=== PATIENT | male | born 1965 | race Caucasian/White ===

== ENCOUNTER → 2019-11-19 | Outpatient (CLI) | payer SELFPAY ==
[~2019-11-19] MED LIST: CATHETER FLUSH 10 ML SYR IV PRN; CHOL100048 PO; CYAN100T3 PO; HOLD METFORMIN - RECEIVED CONTRAST 20 ML VIAL IV SCH; IOHEXOL 350 MG/ML 100 ML (OMNIPAQUE 350) VIAL IV ONE; NS 100 ML (IVPB) BAG IV ONE; POLY17PO6 PO; VITA80006 PO
--- NOTE | 2019-11-19 15:01 | Diagnostic Imaging Report ---
PROCEDURE: CT abdomen and pelvis with contrast. TECHNIQUE: Multiple contiguous axial images were obtained through the abdomen and pelvis after administration of intravenous contrast. Auto Exposure Controls were utilized during the CT exam to meet ALARA standards for radiation dose reduction. INDICATION: Elevated liver enzymes and abdominal distention. COMPARISON: No prior studies are available for comparison. FINDINGS: Imaging through the lung bases demonstrates small bilateral pleural effusions, slightly larger on the right. There is questionable mild nodular contour to the liver which can be seen with cirrhosis. No discrete liver mass is detected. Gallbladder is unremarkable. There is no biliary ductal dilatation. Pancreas is unremarkable. Spleen is normal in size. No adrenal mass is identified. Left kidney does contain a small cortical low density, too small to characterize but most likely a small cyst. Aorta is non-aneurysmal. There is some perihepatic and perisplenic ascites. Small amount of free fluid in the lower midline abdomen is seen as well with moderate free fluid in the pelvis. The bladder and prostate are unremarkable. There does appear to be fat-containing inguinal hernias bilaterally. There is some generalized edema throughout the subcutaneous tissues suggestive of anasarca. IMPRESSION: 1. Bilateral pleural effusions. 2. Moderate abdominal and pelvic ascites. There is some questionable nodular contour to the liver which can be seen with cirrhosis. No discrete liver mass is identified. There is no evidence of splenomegaly. 3. Anasarca. 4. Bilateral fat-containing inguinal hernias. Dictated by: Dictated on workstation # [id number]
== END ==
LOC: RAD FS 14:02
PROVIDERS: ATTEND Family Medicine
DX: J90 Pleural effusion, not elsewhere classified (principal); K40.20 Bilateral inguinal hernia, without obstruction or gangrene, not specified as recurrent; R18.8 Other ascites; R74.8 Abnormal levels of other serum enzymes; R14.0 Abdominal distension (gaseous)
CPT/HCPCS: 74177

== ENCOUNTER 2019-11-22 13:46 | Inpatient (IN) | payer SELFPAY ==
[~2019-11-22] VITALS: Ht 155 cm; Wt 97.3 kg
[2019-11-22] VITALS (14 sets, daily range): BP systolic 70–122; BP diastolic 45–82
[2019-11-22 14:12] LABS: BASOPHILS % (AUTO) 0 % (0-10); EOSINOPHILS # (AUTO) 0.1 10^3/uL (0.0-0.3); EOSINOPHILS % (AUTO) 1 % (0-10); HEMATOCRIT 47 % (40-54); HEMOGLOBIN 15.4 G/DL (13.3-17.7); LYMPHOCYTES # (AUTO) 1.2 X 10^3 (1.0-4.0); LYMPHOCYTES % (AUTO) 17 % (12-44); MEAN CORPUSCULAR HEMOGLOBIN 30 PG (25-34); MEAN CORPUSCULAR HGB CONC 33 G/DL (32-36); MEAN CORPUSCULAR VOLUME 92 FL (80-99); MEAN PLATELET VOLUME 11.5 FL (7.4-10.4); MONOCYTES # (AUTO) 0.6 X 10^3 (0.0-1.0); MONOCYTES % (AUTO) 8 % (0-12); NEUTROPHILS # (AUTO) 5.3 X 10^3 (1.8-7.8); NEUTROPHILS % (AUTO) 74 % (42-75); PLATELET COUNT 139 10^3/uL (130-400); RED CELL DISTRIBUTION WIDTH 14.4 % (10.0-14.5); WHITE BLOOD COUNT 7.1 10^3/uL (4.3-11.0)
[2019-11-22] MEDS: dilTIAZem DRIP PRE-MIX 125 ML IV SCH (14:13)
--- NOTE | 2019-11-22 14:14 | ED Cardiac General ---
History of Present Illness General Chief Complaint: Respiratory Problems Stated Complaint: ENLARGED HEART Nursing Triage Note: complaint of sob with ambulation, had echo today showed elevated heart rate and abn. heart rhythm Source: patient, other (gf) Exam Limitations: no limitations History of Present Illness Date Seen by Provider: Nov 22, 2019 Time Seen by Provider: 13:46 Initial Comments Patient presents to ER by private conveyance with his significant other and chief complaint for the past 2-3 weeks he's had progressively worsening exertional dyspnea, orthopnea without cough fever chills body aches malaise dysuria nausea vomiting or chest pain. He has never followed with a doctor before but did establish care with Dr. Birmingham who sent him to Dr. Corado. Dr. Corado has not met the patient yet however he did order an echocardiogram. The patient was down with the echocardiogram tech when they discovered the ejection fraction to be about 5% and his heart rate 150-160. Dr. Corado asked the tech to send him to the ER. The patient still having no chest pain just exertional dyspnea. No significant family history. 3 weeks ago when he started becoming weak he stopped drinking alcohol. He typically would drink 2-3 beers at night and a little more on the weekend. He says he used to smoke about half a pack cigarettes per day but he quit 3 weeks ago. He has no known history of lung disease or wheezing. Patient denies ever having withdrawal from alcohol or DVTs. He denies ever using recreational drugs. Allergies and Home Medications Allergies Coded Allergies: No Known Drug Allergies (Unverified , 11/19/19) Patient Home Medication List Home Medication List Reviewed: Yes Review of Systems Review of Systems Constitutional: No chills, No fever, No malaise; weakness EENTM: No Blurred Vision, No Double Vision Respiratory: Denies Cough; Shortness of Air, SOA With Exertion; Denies Stridor, Denies Wheezing Cardiovascular: Denies Chest Pain, Denies Edema; Irregular Heart Rate; Denies Lightheadedness; Palpitations, Other (orthopnea) Gastrointestinal: Denies Abdomen Distended, Denies Abdominal Pain, Denies Nausea Genitourinary: Denies Burning, Denies Discharge Musculoskeletal: No back pain, No joint pain Skin: No pruritus, No rash All Other Systems Reviewed Negative Unless Noted: Yes Past Hcvtolo-Xqewqy-Texshw Hx Patient Social History Alcohol Use: Past History Alcohol Beverage of Choice: Beer (2-3 per day) Recreational Drug Use: No Smoking Status: Former Smoker Type Used: Cigarettes Former Smoker, Quit: Nov 08, 2019 2nd Hand Smoke Exposure: No Recent Foreign Travel: No Contact w/Someone Who Travel: No Recent Infectious Disease Expo: No Recent Hopitalizations: No Physical Abuse: No Sexual Abuse: No Mistreated: No Fear: No Seasonal Allergies Seasonal Allergies: No Physical Exam Vital Signs Vital Signs - First Documented 11/22/19 13:59 Temp 36.3 Pulse 160 Resp 22 B/P (MAP) 121/88 (99) Pulse Ox 95 O2 Delivery Room Air Capillary Refill : Less Than 3 Seconds Height, Weight, BMI Height: '" Weight: lbs. oz. kg; 41.00 BMI Method: General Appearance: WD/WN, Mild Distress HEENT: PERRL/EOMI, Pharynx Normal, Moist Mucous Membranes Neck: Full Range of Motion, Normal Inspection Respiratory: Lungs Clear, Normal Breath Sounds, No Accessory Muscle Use, No Respiratory Distress Cardiovascular: No Edema, No JVD, Irregularly Irregular, Tachycardia Gastrointestinal: Normal Bowel Sounds, No Organomegaly, Non Tender, Soft Extremity: Normal Capillary Refill, Normal Inspection, No Pedal Edema Neurologic/Psychiatric: Alert, Oriented x3 Skin: Normal Color, Warm/Dry Progress/Results/Core Measures Results/Orders Lab Results Laboratory Tests Test 11/22/19 13:58 Range/Units White Blood Count 7.1 4.3-11.0 10^3/uL Red Blood Count 5.13 4.35-5.85 10^6/uL Hemoglobin 15.4 13.3-17.7 G/DL Hematocrit 47 40-54 % Mean Corpuscular Volume 92 80-99 FL Mean Corpuscular Hemoglobin 30 25-34 PG Mean Corpuscular Hemoglobin Concent 33 32-36 G/DL Red Cell Distribution Width 14.4 10.0-14.5 % Platelet Count 139 130-400 10^3/uL Mean Platelet Volume 11.5 H 7.4-10.4 FL Neutrophils (%) (Auto) 74 42-75 % Lymphocytes (%) (Auto) 17 12-44 % Monocytes (%) (Auto) 8 0-12 % Eosinophils (%) (Auto) 1 0-10 % Basophils (%) (Auto) 0 0-10 % Neutrophils # (Auto) 5.3 1.8-7.8 X 10^3 Lymphocytes # (Auto) 1.2 1.0-4.0 X 10^3 Monocytes # (Auto) 0.6 0.0-1.0 X 10^3 Eosinophils # (Auto) 0.1 0.0-0.3 10^3/uL Basophils # (Auto) 0.0 0.0-0.1 10^3/uL Sodium Level 133 L 135-145 MMOL/L Potassium Level 3.4 L 3.6-5.0 MMOL/L Chloride Level 95 L 98-107 MMOL/L Carbon Dioxide Level 26 21-32 MMOL/L Anion Gap 12 5-14 MMOL/L Blood Urea Nitrogen 24 H 7-18 MG/DL Creatinine 1.35 H 0.60-1.30 MG/DL Estimat Glomerular Filtration Rate 55 BUN/Creatinine Ratio 18 Glucose Level 110 H 70-105 MG/DL Calcium Level 9.3 8.5-10.1 MG/DL Corrected Calcium 9.3 8.5-10.1 MG/DL Total Bilirubin 1.9 H 0.1-1.0 MG/DL Aspartate Amino Transf (AST/SGOT) 50 H 5-34 U/L Alanine Aminotransferase (ALT/SGPT) 133 H 0-55 U/L Alkaline Phosphatase 114 40-136 U/L Troponin I 0.034 H <0.028 NG/ML B-Type Natriuretic Peptide 1437.4 H <100.0 PG/ML Total Protein 6.9 6.4-8.2 GM/DL Albumin 4.0 3.2-4.5 GM/DL My Orders Orders - ARTEMIO OATES Continuous Ekg Monitoring (11/22/19 13:47) Ekg Tracing (11/22/19 13:47) Ed Iv/Invasive Line Start (11/22/19 13:47) Cbc With Automated Diff (11/22/19 13:47) Comprehensive Metabolic Panel (11/22/19 13:47) Troponin I (11/22/19 13:47) BNP (11/22/19 13:47) Ua Culture If Indicated (11/22/19 13:47) Chest 1 View, Ap/Pa Only (11/22/19 14:00) Diltiazem Injection (Cardizem Injection) (11/22/19 14:00) Diltiazem Drip Pre-Mix (Cardizem Drip Pr (11/22/19 14:00) Enoxaparin Injection (Lovenox Injection) (11/22/19 14:15) Medications Given in ED Current Medications Medications Dose Ordered Sig/Emmanuelle Route Start Time Stop Time Status Last Admin Dose Admin Diltiazem HCl 20 mg ONCE ONCE IVP 11/22/19 14:00 11/22/19 14:01 DC 11/22/19 14:10 20 MG Vital Signs/I&O 11/22/19 13:59 Temp 36.3 Pulse 160 Resp 22 B/P (MAP) 121/88 (99) Pulse Ox 95 O2 Delivery Room Air Blood Pressure Mean: 99 Progress Progress Note #1: Time: 14:16 Progress Note Initial EKG demonstrates atrial fibrillation with rapid ventricular response. A 20 mg IV Cardizem bolus was ordered followed by Cardizem drip. Patient has good blood pressure at 120 systolic. After the initial bolus of 107 systolic. Heart rate went down from 160 to 140s. Aspirin to chew and swallow was given. Lovenox 100 mg based on a stated weight of 220 pounds. Progress Note #2: Time: 14:40 Progress Note Patient still comfortable without pain. Heart rate came down from the 170s to the 140-150 range. Cardizem drip was increased from 5 mg to 10 mg per hour. Progress Note #3: Time: 15:[address] Corado came down and visited and examined the patient. His plan is now to take the patient straight to catheter lab and ICU. Heart rate is still in the 140-150 range so we will increase the Cardizem to 15 mg/h. Blood pressure 123/110 Initial ECG Impression Date: Nov 22, 2019 Initial ECG Impression Time: 13:52 Initial ECG Rate: 178 Initial ECG Rhythm: A Fib/Flutter Initial ECG Intervals: QT (482) Initial ECG Impression: Atrial Fibrillation w/RVR Initial ECG Comparisson: No Previous ECG Available Comment Atrial fibrillation with rapid ventricular response and no clinically relevant ST elevation or depression. Diagnostic Imaging Diagonstic Imaging: Xray Plain Films/CT/US/NM/MRI: chest (1v) Comments Modest pulmonary congestion. No acute infiltrate. Reviewed: Reviewed by Me Departure Communication (Admissions) Time/Spoke to Admitting Phy: 14:05 Discussed the case with Dr. Larkin and she agrees to take the patient to the ICU on a Cardizem drip. Time/Spoke to Consulting Phy: 13:57 Discussed the case with Dr. Corado and he agrees to consult on the case. He would like Lovenox, aspirin, cardiac panel, Cardizem drip and placed in the unit under medicine. Impression Primary Impression: Atrial fibrillation with rapid ventricular response Disposition: ADMITTED INPATIENT Condition: Critical Admissions Decision to Admit Reason: Admit from ER (General) Decision to Admit/Date: Nov 22, 2019 Time/Decision to Admit Time: 13:57 Departure-Patient Inst. Referrals: SELF,MARKO ROMEO (PCP/Family) Primary Care Physician Work/School Note: Work Release Form Date Seen in the Emergency Department: Nov 22, 2019 Return to Work: Nov 24, 2019 Restrictions: Need Release from Doctor Other Restrictions Listed Below: Patient admitted to ICU. ARTEMIO OATES Nov 22, 2019 14:14
[2019-11-22] MEDS ORDERED: ENOXAPARIN 100 MG/1 ML (LOVENOX) SYR SC ONE (14:15)
[2019-11-22] MEDS ORDERED: ASPIRIN 81 MG CHEW (CHILDREN'S ASA) PO ONE (14:30)
[2019-11-22 14:39] LABS: BILIRUBIN,TOTAL 1.9 MG/DL (0.1-1.0); CALCIUM 9.3 MG/DL (8.5-10.1); CREATININE SERUM 1.35 MG/DL (0.60-1.30); POTASSIUM 3.4 MMOL/L (3.6-5.0); TOTAL PROTEIN 6.9 GM/DL (6.4-8.2)
--- NOTE | 2019-11-22 14:58 | NUR ---
Dr Corado here with patient
--- NOTE | 2019-11-22 15:04 | NUR ---
Spiral Machine Operator Yaneli notifed of Dr Corado requesting Manufacturing Test Technician
--- NOTE | 2019-11-22 15:13 | Consultation-Cardiology ---
HPI-Cardiology Cardiology Consultation Date of Consultation 11/22/19 Date of Admission Time Seen by Provider: 15:10 Indication: congestive heart failure HPI 54 years old gentleman with no known past medical history except for tobaccoism and alcoholism, referred for echocardiogram, has been having shortness of breath on exertion, increasing orthopnea and pedal edema. Denied any chest pain, admit having palpitation. Home Medications & Allergies Allergies: Coded Allergies: No Known Drug Allergies (Unverified , 11/19/19) Home Medication List Reviewed: Yes OFJ-Keokbj-Ovzwtz Hx Patient Social History Marital Status: Employed/Student: employed Alcohol Use: Regular Use Recreational Drug Use: No Smoking Status: Current Everyday Smoker Type Used: Cigarettes 2nd Hand Smoke Exposure: No Recent Foreign Travel: No Recent Infectious Disease Expo: No Recent Hopitalizations: No Past Medical History Discussed below Family Medical History Family Medical Hx Noncontributory Review of Systems-General Review of Systems Constitutional: No chills, No fever, No malaise; weakness EENTM: see HPI, no symptoms reported Respiratory: No no symptoms reported; see HPI, cough, dyspnea on exertion; No hemoptysis; orthopnea; No phlegm; short of breath; No stridor, No wheezing, No other Cardiovascular: No no symptoms reported; see HPI, chest pain, edema; No Hx of Intervention; palpitations; No syncope, No vascular heart diseas, No other Gastrointestinal: no symptoms reported, see HPI Genitourinary: no symptoms reported, see HPI Musculoskeletal: see HPI; No back pain, No joint pain Skin: see HPI; No pruritus, No rash Psychiatric/Neurological: No Symptoms Reported, See HPI All Other Systems Reviewed Negative Unless Noted: Yes Reviewed Test Results Reviewed Test Results Lab Laboratory Tests Test 11/22/19 13:58 Range/Units White Blood Count 7.1 4.3-11.0 10^3/uL Red Blood Count 5.13 4.35-5.85 10^6/uL Hemoglobin 15.4 13.3-17.7 G/DL Hematocrit 47 40-54 % Mean Corpuscular Volume 92 80-99 FL Mean Corpuscular Hemoglobin 30 25-34 PG Mean Corpuscular Hemoglobin Concent 33 32-36 G/DL Red Cell Distribution Width 14.4 10.0-14.5 % Platelet Count 139 130-400 10^3/uL Mean Platelet Volume 11.5 H 7.4-10.4 FL Neutrophils (%) (Auto) 74 42-75 % Lymphocytes (%) (Auto) 17 12-44 % Monocytes (%) (Auto) 8 0-12 % Eosinophils (%) (Auto) 1 0-10 % Basophils (%) (Auto) 0 0-10 % Neutrophils # (Auto) 5.3 1.8-7.8 X 10^3 Lymphocytes # (Auto) 1.2 1.0-4.0 X 10^3 Monocytes # (Auto) 0.6 0.0-1.0 X 10^3 Eosinophils # (Auto) 0.1 0.0-0.3 10^3/uL Basophils # (Auto) 0.0 0.0-0.1 10^3/uL Sodium Level 133 L 135-145 MMOL/L Potassium Level 3.4 L 3.6-5.0 MMOL/L Chloride Level 95 L 98-107 MMOL/L Carbon Dioxide Level 26 21-32 MMOL/L Anion Gap 12 5-14 MMOL/L Blood Urea Nitrogen 24 H 7-18 MG/DL Creatinine 1.35 H 0.60-1.30 MG/DL Estimat Glomerular Filtration Rate 55 BUN/Creatinine Ratio 18 Glucose Level 110 H 70-105 MG/DL Calcium Level 9.3 8.5-10.1 MG/DL Corrected Calcium 9.3 8.5-10.1 MG/DL Total Bilirubin 1.9 H 0.1-1.0 MG/DL Aspartate Amino Transf (AST/SGOT) 50 H 5-34 U/L Alanine Aminotransferase (ALT/SGPT) 133 H 0-55 U/L Alkaline Phosphatase 114 40-136 U/L Troponin I 0.034 H <0.028 NG/ML B-Type Natriuretic Peptide 1437.4 H <100.0 PG/ML Total Protein 6.9 6.4-8.2 GM/DL Albumin 4.0 3.2-4.5 GM/DL Physical Exam Physical Exam Vital Signs Vital Signs - First Documented 11/22/19 13:59 Temp 36.3 Pulse 160 Resp 22 B/P (MAP) 121/88 (99) Pulse Ox 95 O2 Delivery Room Air Capillary Refill : Less Than 3 Seconds Height, Weight, BMI Height: '" Weight: lbs. oz. kg; 41.00 BMI Method: General Appearance: WD/WN, Mild Distress HEENT: PERRL/EOMI, Pharynx Normal, Moist Mucous Membranes Neck: Full Range of Motion, Normal Inspection Respiratory: Lungs Clear, Normal Breath Sounds, No Accessory Muscle Use, No Respiratory Distress Cardiovascular: No Edema, No JVD, Irregularly Irregular, Tachycardia Gastrointestinal: Normal Bowel Sounds, No Organomegaly, Non Tender, Soft Extremity: Normal Capillary Refill, Normal Inspection, Pedal Edema Neurologic/Psychiatric: Alert, Oriented x3 Skin: Normal Color, Warm/Dry A/P-Cardiology Admission Diagnosis Congestive heart failure, acute left ventricular systolic dysfunction Atrial fibrillation Hypertension Pulmonary edema Assessment/Plan Atrial fibrillation with rapid ventricular response, unknown duration, planning to evaluate CLAUDETTE once clinically more stable. Possible cardioversion Congestive heart failure, acute left ventricular systolic dysfunction, ejection fraction 10 percent, unknown etiology, could be ischemic, planning for cardiac catheterization Hypertension, tolerating Cardizem drip well Shortness of breath, pulmonary edema, starting aggressive diuresis Tobaccoism, educated on smoking cessation Alcoholism, heavy drinking, educated on avoiding alcohol. INDERJIT HAWK MD Nov 22, 2019 15:13
--- NOTE | 2019-11-22 15:13 | Cardiac Procedure Note-CS/ASA ---
Pre-Procedure Note Pre-Op Procedure Note H&P Reviewed The H&P was reviewed, patient examined and no changes noted. Date H&P Reviewed: Nov 22, 2019 Time H&P Reviewed: 15:13 Conscious Sedation Pre-Proced Time 15:13 ASA Score 3 For ASA 3 and 4: Consider anesthesia and medical clearance. Also, for patients with a history of failed moderate sedation consider anesthesia. Airway Lungs Heart ASA score ASA 1: a normal healthy patient ASA 2: a patient with a mild systemic disease (mid diabetes, controlled hypertension, obesity x ASA 3: a patient with a severe systemic disease that limits activity (angina, COPD, prior Myocardial infarction) ASA 4: a patient with an incapacitating disease that is a constant threat to life (CHF, renal failure) ASA 5: a moribund patient not expected to survive 24 hrs. (ruptured aneurysm) ASA 6: a declared brain- patient whose organs are being harvested. For emergent operations, add the letter E after the classification Mallampati Classification Grade 3 Sedation Plan Analgesia, Amnesia, Plan communicated to team members, Discussed options with patient/fam, Discussed risks with patient/fam The patient is an appropriate candidate to undergo the planned procedure, sedation, and anesthesia. The patient immediately re-assessed prior to indication. INDERJIT HAWK MD Nov 22, 2019 15:13
--- NOTE | 2019-11-22 15:25 | Diagnostic Imaging Report ---
INDICATION: Cardiomegaly. EXAMINATION: AP view of the chest is obtained. COMPARISON: There is no previous study available at this time for comparison. FINDINGS: There is generalized cardiomegaly. Pulmonary vascularity is within normal limits. There is blunting of the costophrenic sulci indicating small bilateral pleural effusions. There is no evidence of pneumothorax or focal consolidation. IMPRESSION: Mild bilateral pleural fluid and mild generalized cardiomegaly. Follow-up PA and lateral views of the chest would be useful. Dictated by: Dictated on workstation # [id number]
--- OUTSIDE RECORDS SUMMARY | 2019-11-22 16:39 | XMS REPORT | Continuity of Care Document ---
Author Organization Unknown Address Unknown Phone Unavailable Allergies Active Description Code Type Severity Reaction Onset Reported/Identified Relationship to Patient Clinical Status Yes No Allergy Information Available [id number] Drug Allergy Unknown N/A 020 Yes No Known Drug Allergies [id number] Drug Allergy Unknown N/A 11/19/2019 Medications There is no data. Problems There is no data. Procedures There is no data. Results There is no data. Encounters ACCT No. Visit Date/Time Discharge Status Pt. Type Provider Facility Loc./Unit Complaint [id number] 11/19/2019 14:18:00 Document Registration [id number] 11/19/2019 14:02:[address] Outpatient SELF MARKO ROMEO Via [facility] RAD FS R74.8 R14.0
[2019-11-22] MEDS ORDERED: HEParin DRIP 25000 UNIT/500ML 500 ML IV SCH (16:43)
[2019-11-22] MEDS ORDERED: PATIENT MAY USE OWN MEDS, ALL PO SCH (16:45)
[2019-11-22] MEDS ORDERED: HEParin 1000 UNIT/ML (10ML VIAL) FOR BOLUS IV PRN (16:45)
--- NOTE | 2019-11-22 16:50 | Cardiac Cath Report ---
Cardiac Cath Report Physician (s)/Shoe Sprayer (s) Physician INDERJIT HAWK MD Pre-Procedure Diagnosis Pre-Procedure Diagnosis: Congestive heart failure Post-Procedure Note Procedure Start Date: Nov 22, 2019 Name of Procedure: Left heart catheterization Insertion of intra-aortic balloon pump Findings/Procedure Note PROCEDURE NOTE: 54 years old gentleman with history of alcoholism, tobaccoism, admitted with atrial fibrillation and rapid ventricular response, hypotensive shock and severe cardiomyopathy. After explaining the procedure to the patient, all pros and cons were explained, all questions were answered. The patient signed the consent and then he was placed on the cardiac catheterization laboratory. Groin was prepped SL fashion local anesthesia was used. Sheath placed in the right femoral artery artery. Jah right and left catheter were used to access the coronary system. Jah right catheter advanced to the left ventricular cavity, pressure was measured no left ventriculogram was done, pullback LV to aorta. Patient was noted to be hypotensive, still tachycardic but required higher dose of Cardizem to achieve adequate heart rate controlled, he has severe cardiomyopathy with poor cardiac output, decided to proceed with intra-aortic balloon pump placement and will adjust his medication accordingly trying to remove the balloon pump within 24 hours if possible. Patient will need aggressive diuresis. FINDINGS: Hemodynamics LV 92/29, end-diastolic pressure of 29 Aorta 99/75 mean of 79 ANATOMY: Left Main is free of obstructive disease Left Anterior Descending is tortuous with no significant obstructive disease Left Circumflex is free of obstructive disease Right Coronory Artery has mild disease nonobstructive disease LV Gram was not done, has an echo showing severe cardiomyopathy The sheath was exchanged then intra-aortic balloon pump was placed, no complication was noted. Sutured in place. CONCLUSION: 1. No significant obstructive disease with tortuous coronary system. 2. Severe cardiomyopathy with elevated left ventricular end-diastolic pressure and hypotension 3. Successful insertion of intra-aortic balloon pump DISCUSSION AND RECOMMENDATION: Patient was started on IV Lopressor in addition to the Cardizem drip. I'll start aggressive diuresis with Lasix, insertion of a Harris catheter. And monitor response Anesthesia Type: Conscious Sedation Estimated blood loss (mL): 25 ml Contrast Amount: 23 ml Total Radiation Dose: 568 mGy Post-Procedure Diagnosis Post-operative diagnosis: Congestive heart failure, acute left ventricular systolic dysfunction, nonischemic cardiomyopathy Atrial fibrillation with rapid ventricular response Hypotension Alcoholism INDERJIT HAWK MD Nov 22, 2019 16:50
[2019-11-22 17:02] LABS: INR 1.4 (0.8-1.4); PROTHROMBIN TIME PATIENT 17.7 SEC (12.2-14.7)
[2019-11-22] MEDS: FUROSEMIDE 40 MG/4 ML INJ (LASIX) IVP SCH (17:49)
[2019-11-22] MEDS: meTOprolol 5 MG/5 ML (LOPRESSOR) VIAL IV SCH (17:49)
[2019-11-22] MEDS ORDERED: 1/2 NS IV SOLUTION 1,000 ML IV PRN (17:54)
[2019-11-22] MEDS ORDERED: LORazepam 1 MG (ATIVAN) TAB PO PRN (18:00)
[2019-11-22] MEDS ORDERED: LORazepam INJ 2 MG/ML (ATIVAN) VIAL IV PRN (18:00)
[2019-11-22] MEDS ORDERED: LORazepam INJ 2 MG/ML (ATIVAN) VIAL IM/IV PRN (18:00)
[2019-11-22] MEDS ORDERED: ANTACID SUSP 30 ML UDC (MYLANTA) PO PRN (18:00)
[2019-11-22] MEDS ORDERED: SENNA W/DOCUSATE (SENOKOT S) TABLET PO PRN (18:00)
[2019-11-22] MEDS ORDERED: ONDANSETRON 4 MG/2 ML (SDV) Z0FRAN IV PRN (18:00)
[2019-11-22] MEDS ORDERED: ONDANSETRON 4 MG (ZOFRAN) ORAL DISSOLVE TAB SL PRN (18:00)
[2019-11-22] MEDS ORDERED: D5 1/2 NS 1000 ML IV SOLUTION 1,000 ML IV PRN (18:00)
[2019-11-22] MEDS: NS IV 1000 ML 1,000 ML IV SCH ×2 (18:01→23:09)
[2019-11-22] MEDS: PANTOPRAZOLE 40 MG (PROTONIX) VIAL IV SCH (18:09)
--- OUTSIDE RECORDS SUMMARY | 2019-11-22 18:23 | XMS REPORT | Continuity of Care Document ---
Author Organization Unknown Address Unknown Phone Unavailable Allergies Active Description Code Type Severity Reaction Onset Reported/Identified Relationship to Patient Clinical Status Yes No Allergy Information Available [id number] Drug Allergy Unknown N/A 020 Yes No Known Drug Allergies [id number] Drug Allergy Unknown N/A 11/19/2019 Medications There is no data. Problems There is no data. Procedures There is no data. Results Test Result Range PT panel in platelet poor plasma by coag ulation assay - 11/22/19 13:08 Prothrombin time (PT) in platelet poor plasma by coagu lation assay 17.7 s 12.2-14.7 INR in platelet poor plasma or blood by coagulation as say 1.4 0.8-1.4 Activated partial thromboplastin time (a PTT) in platelet poor plasma bycoagulation assay - 11/22/19 13:08 Activated partial thromboplastin time (a PTT) in platelet poor plasma bycoagulation assay 30 s 24-35 Encounters ACCT No. Visit Date/Time Discharge Status Pt. Type Provider Facility Loc./Unit Complaint [id number] 11/22/2019 14:10:[address] Inpatient SERGIO WRAY MD Via [facility] ICU AFIB WITH RVR [id number] 11/22/2019 13:04:[address] Outpatient SELF MARKO ROMEO [facility] [place] CARD MILD CARDIOMEGALY [id number] 11/19/2019 14:02:[address] Outpatient SELF MARKO ROMEO [facility] [place] RAD FS R74.8 R14.0
[2019-11-23] VITALS (24 sets, daily range): BP systolic 80–143; BP diastolic 62–95
[2019-11-23] MEDS: meTOprolol 5 MG/5 ML (LOPRESSOR) VIAL IV SCH ×5 (00:10→23:09)
[2019-11-23] MEDS: NS IV 1000 ML 1,000 ML IV SCH (02:51)
[2019-11-23] MEDS: dilTIAZem DRIP PRE-MIX 125 ML IV SCH (03:38)
[2019-11-23 04:31] LABS: BASOPHILS % (AUTO) 1 % (0-10); EOSINOPHILS % (AUTO) 1 % (0-10); HEMATOCRIT 42 % (40-54); HEMOGLOBIN 13.7 G/DL (13.3-17.7); LYMPHOCYTES # (AUTO) 1.4 X 10^3 (1.0-4.0); LYMPHOCYTES % (AUTO) 23 % (12-44); MEAN CORPUSCULAR HEMOGLOBIN 30 PG (25-34); MEAN CORPUSCULAR HGB CONC 33 G/DL (32-36); MEAN CORPUSCULAR VOLUME 93 FL (80-99); MEAN PLATELET VOLUME 12.2 FL (7.4-10.4); MONOCYTES # (AUTO) 0.6 X 10^3 (0.0-1.0); MONOCYTES % (AUTO) 10 % (0-12); NEUTROPHILS % (AUTO) 66 % (42-75); PLATELET COUNT 136 10^3/uL (130-400); RED CELL DISTRIBUTION WIDTH 14.6 % (10.0-14.5)
[2019-11-23 04:41] LABS: ALANINE AMINOTRANSFERASE 105 U/L (0-55); ALBUMIN 3.3 GM/DL (3.2-4.5); ALKALINE PHOSPHATASE 89 U/L (40-136); BILIRUBIN,TOTAL 1.8 MG/DL (0.1-1.0); BUN/CREATININE RATIO 20; CALCIUM 8.2 MG/DL (8.5-10.1); CARBON DIOXIDE 22 MMOL/L (21-32); CHLORIDE 99 MMOL/L (98-107); GFR ESTIMATED > 60; GLUCOSE 89 MG/DL (70-105); MAGNESIUM 1.9 MG/DL (1.6-2.4); PHOSPHORUS 4.1 MG/DL (2.3-4.7); POTASSIUM 3.6 MMOL/L (3.6-5.0); SODIUM 135 MMOL/L (135-145); TOTAL PROTEIN 5.7 GM/DL (6.4-8.2)
[2019-11-23] MEDS: POTASSIUM CL 10MEQ/50ML IVPB 50 ML IV SCH ×3 (04:54→05:51)
[2019-11-23] MEDS: MAGNESIUM 1 GM/100 ML IVPB 100 ML IV SCH (05:04)
[2019-11-23] MEDS: KCL 20 MEQ TAB (K-DUR) PO SCH (05:04)
--- NOTE | 2019-11-23 05:27 | Pulmonary Consultation ---
History of Present Illness History of Present Illness Date Seen by Provider: Nov 23, 2019 Time Seen by Provider: 05:22 Date of Admission Reason for Visit: congestive heart failure History of Present Illness 54 yo with no known past medical history except for tobaccoism and alcoholism, referred for echocardiogram, has been having shortness of breath on exertion, in creasing orthopnea and pedal edema. Found to have EF of 5% -10% then went to cath. Pt found to have nonischemic cardiomyopathy. He is currently on a balloon pump. Allergies and Home Medications Allergies Coded Allergies: No Known Drug Allergies (Unverified , 11/19/19) Past Qinodwt-Xrgafu-Ccsnrd Hx Patient Social History Alcohol Use: Regular Use Alcohol Beverage of Choice: Beer (2-3 per day) Recreational Drug Use: No Smoking Status: Current Everyday Smoker Type Used: Cigarettes Former Smoker, Quit: Nov 08, 2019 2nd Hand Smoke Exposure: No Recent Foreign Travel: No Contact w/Someone Who Travel: No Recent Infectious Disease Expo: No Recent Hopitalizations: No Physical Abuse: No Sexual Abuse: No Mistreated: No Fear: No Seasonal Allergies Seasonal Allergies: No Review of Systems Time Seen by Provider: 07:22 Constitutional: Weakness, Malaise; No: Fever, Chills, Sweats, Other Eyes: No: Pain, Vision change, Conjunctivae inflammation, Eyelid inflammation, Other, Redness ENT: No: Ear pain, Ear discharge, Nose pain, Nose discharge, Nose congestion, Mouth pain, Mouth swelling, Throat pain, Throat swelling, Other Respiratory: Cough, Dry, Shortness of breath, SOB with excertion; No: Wheezing, Hemoptysis, Pleuritic Pain, Sputum, Wheezing, Other Cardiovascular: Paroxysmal Noc. Dyspnea, Edema Gastrointestinal: No: Nausea, Vomiting, Abdominal Pain, Diarrhea, Constipation, Melena, Hematochezia, Other Sepsis Event Evaluation Height, Weight, BMI Height: '" Weight: lbs. oz. kg; 41.00 BMI Method: Exam Exam Vital Signs Date Time Temp Pulse Resp B/P (MAP) Pulse Ox O2 Delivery O2 Flow Rate FiO2 11/23/19 05:00 73 14 130/70 (90) 95 Nasal Cannula 3.00 11/23/19 05:00 114 11/23/19 04:15 80 16 120/84 (96) 96 Nasal Cannula 3.00 11/23/19 04:00 86 11/23/19 04:00 90 25 101/79 (86) 92 Nasal Cannula 3.00 11/23/19 04:00 93 Nasal Cannula 3.00 11/23/19 03:00 36.8 11/23/19 03:00 72 11/23/19 03:00 98 17 91/70 (77) 94 Nasal Cannula 3.00 11/23/19 02:00 91 15 109/83 (92) 93 Nasal Cannula 3.00 11/23/19 02:00 90 11/23/19 01:00 36.4 105 19 97/70 (79) 95 Nasal Cannula 3.00 11/23/19 01:00 79 11/23/19 01:00 100 11/23/19 00:00 90 12 95/65 (75) 95 Nasal Cannula 3.00 11/23/19 00:00 115 11/23/19 00:00 95 Nasal Cannula 3.00 11/22/19 23:00 75 14 95/67 (76) 95 Nasal Cannula 3.00 11/22/19 23:00 81 11/22/19 22:00 101 18 105/59 (74) 92 Nasal Cannula 3.00 11/22/19 22:00 100 11/22/19 21:03 84 16 84/73 (77) 96 Nasal Cannula 3.00 11/22/19 21:00 85 11 70/45 (53) 95 Nasal Cannula 3.00 11/22/19 21:00 88 11/22/19 20:15 89 23 86/47 (60) 94 Nasal Cannula 3.00 11/22/19 20:00 80 11/22/19 20:00 87 12 83/68 (73) 95 Nasal Cannula 3.00 11/22/19 19:55 96 Nasal Cannula 3.00 11/22/19 19:45 82 12 90/74 (79) 95 Nasal Cannula 3.00 11/22/19 19:30 79 96/72 (80) 93 Nasal Cannula 2.00 11/22/19 19:15 85 16 122/66 (84) 94 Nasal Cannula 2.00 11/22/19 19:12 85 17 120/77 (91) 92 Nasal Cannula 2.00 11/22/19 19:00 86 11/22/19 19:00 36.6 84 23 78/67 (71) 92 Nasal Cannula 2.00 11/22/19 19:00 82 11/22/19 18:35 110 11/22/19 18:15 98 93 Nasal Cannula 2.00 11/22/19 18:00 98 99/67 (78) 93 Nasal Cannula 2.00 11/22/19 17:53 126 11/22/19 17:45 98 18 109/77 (88) 96 Nasal Cannula 2.00 11/22/19 17:35 95 Nasal Cannula 2.00 11/22/19 17:30 135 102/82 (89) Nasal Cannula 2.00 11/22/19 17:30 112 11/22/19 15:56 36.8 126 20 121/99 96 Room Air 11/22/19 13:59 36.3 160 22 121/88 (99) 95 Room Air I & O 11/23/19 07:00 Intake Total 1125 ml Output Total 1140 ml Balance -15 ml Height & Weight Height: '" Weight: lbs. oz. kg; 41.00 BMI Method: General Appearance: WD/WN, Mild Distress HEENT: PERRL/EOMI, Pharynx Normal, Moist Mucous Membranes Neck: Full Range of Motion, Normal Inspection Respiratory: Lungs Clear, Normal Breath Sounds, No Accessory Muscle Use, No Respiratory Distress, Decreased Breath Sounds Cardiovascular: No Edema, No JVD, Irregularly Irregular, Tachycardia Capillary Refill: Less Than 3 Seconds Extremity: Normal Capillary Refill, Normal Inspection, Pedal Edema Neurologic/Psychiatric: Alert, Oriented x3 Skin: Normal Color, Warm/Dry Results Lab Laboratory Tests 11/22/19 13:58 11/23/19 03:00 Assessment/Plan Assessment/Plan cardiomyopathy with EF of 5-10% -S/p cath and balloon pump Pulmonary edema -Lasix -Monitor Hypotension -Monitor Afib tobacco and alcohol depndance -Monitor -education Probable AMNA -Out pt testing RAFAELA SHELDON DO Nov 23, 2019 05:27
--- NOTE | 2019-11-23 06:23 | NUR ---
Patient with SBP in the 90's. Reported to Dr Gomez, order to hold am Lasix dose for 0700.
[2019-11-23] MEDS: FUROSEMIDE 40 MG/4 ML INJ (LASIX) IVP SCH ×2 (06:24→18:57)
--- NOTE | 2019-11-23 06:26 | Diagnostic Imaging Report ---
Indication: Shortness of breath Portable chest 4:43 AM Heart enlarged. There is increased density in the perihilar region of both lungs that could be pulmonary edema or atelectasis. There is no appreciable effusion or pneumothorax. IMPRESSION: Cardiomegaly with increased perihilar density that could be pulmonary edema. Dictated by: Dictated on workstation # [id number]
--- NOTE | 2019-11-23 06:56 | NUR ---
Dr Gomez aware of decreased UOP this hour.
[2019-11-23] MEDS: PANTOPRAZOLE 40 MG (PROTONIX) VIAL IV SCH (08:51)
--- NOTE | 2019-11-23 08:56 | Cardiology Progress Note ---
Subjective Date Seen by Provider: Nov 23, 2019 Time Seen by Provider: 08:53 Subjective/Events-last exam Patient is laying down in bed, comfortable, had good urine output overnight but currently Lower, I will give him Lasix again. Review of Systems General: No Chills, No Night Sweats; Fatigue, Malaise; No Appetite, No Other HEENT: No Head Aches, No Visual Changes, No Eye Pain, No Ear Pain, No Dysphasia, No Sinus Congestion, No Post Nasal Drip, No Sore Throat, No Other Pulmonary: Dyspnea; No Cough, No Pleuritic Chest Pain, No Other Cardiovascular: Edema; No: Chest Pain, Palpitations, Orthopnea, Paroxysmal Noc. Dyspnea, Lt Headedness, Other Objective-Cardiology Exam Last Set of Vital Signs Vital Signs 11/23/19 11/23/19 08:00 08:01 Pulse 90 B/P (MAP) 127/78 (94) Pulse Ox 97 O2 Delivery Nasal Cannula O2 Flow Rate 3.00 Capillary Refill : Less Than 3 Seconds I&O Intake and Output 11/23/19 00:00 Intake Total 0 ml Output Total 685 ml Balance -685 ml Intake Oral 0 ml Output Urine Total 685 ml Daily Weight Change No General: Alert, Oriented X3, Cooperative HEENT: Atraumatic, PERRLA Neck: Supple, No JVD, No Thyromegaly Lungs: Normal Air Movement, Other (Bilateral rhonchi) Heart: Regular Rate, Normal S1, Normal S2, No Murmurs, Other (Atrial fibrillation was rapid ventricular response) Abdomen: Normal Bowel Sounds, Soft, No Tenderness, No Hepatosplenomegaly, No Masses Extremities: No Clubbing, No Cyanosis, Normal Pulses, No Tenderness/Swelling, Other (Moderate edema) Skin: No Rashes, No Breakdown, No Significant Lesion Neuro: Normal Gait, Normal Speech, Normal Tone, Sensation Intact Psych/Mental Status: Mental Status NL, Mood NL Results Lab Laboratory Tests 11/22/19 13:58 11/23/19 03:00 A/P-Cardiology Admission Diagnosis Congestive heart failure, acute left ventricular systolic dysfunction Atrial fibrillation Hypertension Pulmonary edema Assessment/Plan Atrial fibrillation with rapid ventricular response, unknown duration, planning to evaluate CLAUDETTE then electrical cardioversion Congestive heart failure, acute left ventricular systolic dysfunction, ejection fraction 10 percent, nonischemic cardiomyopathy, probably alcoholic Cardiac catheterization done showing mild coronary artery disease nonobstructive disease Borderline hypotension, on Cardizem drip, have intra-aortic balloon pump, planning to do CLAUDETTE and cardioversion then stop the Cardizem drip Shortness of breath, pulmonary edema, responding to diuretics Elevated liver enzymes, could be alcoholic, possibility of passive hepatic congestion Tobaccoism, educated on smoking cessation Alcoholism, heavy drinking, educated on avoiding alcohol. Clinical Quality Measures DVT/VTE Risk/Contraindication: Risk Factor Score Per Nursin RFS Level Per Nursing on Admit: 3=High INDERJIT HAWK MD Nov 23, 2019 08:56
--- NOTE | 2019-11-23 08:57 | Cardiac Procedure Note-CS/ASA ---
Pre-Procedure Note Pre-Op Procedure Note H&P Reviewed The H&P was reviewed, patient examined and no changes noted. Date H&P Reviewed: Nov 23, 2019 Time H&P Reviewed: 08:57 Conscious Sedation Pre-Proced Time 08:57 ASA Score 3 For ASA 3 and 4: Consider anesthesia and medical clearance. Also, for patients with a history of failed moderate sedation consider anesthesia. Airway Lungs Heart ASA score ASA 1: a normal healthy patient ASA 2: a patient with a mild systemic disease (mid diabetes, controlled hypertension, obesity ASA 3: a patient with a severe systemic disease that limits activity (angina, COPD, prior Myocardial infarction) x ASA 4: a patient with an incapacitating disease that is a constant threat to life (CHF, renal failure) ASA 5: a moribund patient not expected to survive 24 hrs. (ruptured aneurysm) ASA 6: a declared brain- patient whose organs are being harvested. For emergent operations, add the letter E after the classification Mallampati Classification Grade 3 Sedation Plan Analgesia, Amnesia, Plan communicated to team members, Discussed options with patient/fam, Discussed risks with patient/fam The patient is an appropriate candidate to undergo the planned procedure, sedation, and anesthesia. The patient immediately re-assessed prior to indication. INDERJIT HAWK MD Nov 23, 2019 08:57
[2019-11-23] MEDS ORDERED: FUROSEMIDE 40 MG/4 ML INJ (LASIX) IVP ONE (09:00)
[2019-11-23] MEDS ORDERED: LIDOCAINE 2% VISCOUS 15 ML UDC PO ONE (09:00)
[2019-11-23] MEDS ORDERED: MIDAZOLAM 5 MG/5 ML (VERSED) VIAL ONE (09:25)
[2019-11-23] MEDS ORDERED: proPOfol 200 MG/20 ML (DIPRIVAN) VIAL IV ONE (09:26)
[2019-11-23] MEDS ORDERED: LIDOCAINE 2% VISCOUS 15 ML UDC PO NR (09:30)
[2019-11-23] MEDS ORDERED: AMIODARONE FOR BOLUS 150 MG in D5W 100 ML IVPB 100 ML IV NR (10:00)
--- NOTE | 2019-11-23 10:06 | Cardioversion ---
Cardioversion PROCEDURE PHYSICIAN: Inderjit Corado DATE OF PROCEDURE: 11/23/19 DIRECT EXTERNAL ELECTRICAL CARDIOVERSION: Indications: Atrial Fibrillation with rapid ventricular rate Preoperative diagnoses: Atrial Fibrillation with rapid ventricular rate Postoperative diagnosis: Sinus rhythm, Successful Electrical Cardioversion Anesthesia: By Anesthesia services Complications: None Specimen: None Contrast: 0 Flouroscopy: none Procedure Details: The patient was brought the lab engineer after informed consent was taken, all the risks and complications were explained including the risk of stroke. Electrical cardioversion was carried out with anesthesia support with propofol. 200 joules of synchronized shock was delivered through external patches which promptly restored sinus rhythm. The patient tolerated the procedure well. Conclusions: Successful electrical cardioversion with no complication INDERJIT CORADO MD Nov 23, 2019 10:06 am
--- NOTE | 2019-11-23 10:32 | Anesthesia-General Post-Op ---
MAC Patient Condition Mental Status/LOC: Same as Preop Cardiovascular: Satisfactory Nausea/Vomiting: Absent Respiratory: Satisfactory Pain: Controlled Complications: Absent Post Op Complications Complications None Follow Up Care/Instructions Patient Instructions None needed. Anesthesiology Discharge Order Discharge Order Patient is doing well, no complaints, stable vital signs, no apparent adverse anesthesia problems. No complications reported per nursing. ELIANA THAKUR CRNA Nov 23, 2019 10:32
[2019-11-23 10:34] LABS: BILIRUBIN,URINE NEGATIVE (NEGATIVE); CLARITY,URINE TURBID; COLOR,URINE YELLOW; GLUCOSE, URINE (UA) NEGATIVE (NEGATIVE); KETONES,URINE NEGATIVE (NEGATIVE); LEUKOCYTE ESTERASE ,URINE TRACE (NEGATIVE); NITRITE,URINE NEGATIVE (NEGATIVE); PH,URINE 5.5 (5-9); PROTEIN,URINE NEGATIVE (NEGATIVE)
[2019-11-23] MEDS: AMIODARONE INJECTION 450 MG in D5W IV SOLUTION (EXCEL) 250 ML IV SCH ×2 (10:43→19:07)
--- NOTE | 2019-11-23 10:46 | NUR ---
CLAUDETTE/CARDIOVERSION TIMELINE NOTE: 925: RYLIE FROM ECHO ARRIVES, ANESTHESIA NOTIFIED PT WAS READY. 933: ANESTHESIA ADMINISTERING MEDS, TRAFFIC SUPERINTENDENT AND DR. HAWK IN ROOM. 36: ECHO PERFORMED. 43: CARDIOVERSION PERFORMED WITH 120J WITH NSR SHOWING ON ZOLL AND BSM. 47: END OF CASE. VO OBTAINED FROM DR. HAWK TO START AMIO GTT WITH BOLUS. PT TOLERATED WELL. OXYMASK PLACED AT 9 LPM BY ANESTHESIA. PER ANESTHESIA 2 VERSED AND 90 PROPOFOL ADMINISTERED FOR ENTIRE PROCEDURE. SEE ANESTHESIA NOTE. PT RESTING QUIETLY IN NO DISTRESS AT THIS TIME.
[2019-11-23 10:47] LABS: AMORPHOUS SEDIMENT,UR FEW AMOR URATES /LPF; BACTERIA,URINE NEGATIVE /HPF
--- NOTE | 2019-11-23 11:27 | NUR ---
PT DAUGHTER, ANYA, IN ROOM. PT IS VISITING WITH HER. DAUGHTER HAS MANY QUESTIONS REGARDING DPOA/ADVANCED DIRECTIVES AND APPLYING FOR DISABILITY. SS CONSULT ORDERED TO ASSIST HER WITH THESE THINGS.
--- NOTE | 2019-11-23 11:50 | NUR ---
CM/SS visited with the patient for social service consult. The patients daughter Martha had questions for this SS in regards to Advanced Directives. Martha stated that her father did not have an Advanced Directive, Living will, or any other legal document. Martha had general questions about the Advanced Directive, CM/SS answered to the best of abilities and provided an informational sheet. Martha stated that her and the patient are wanting to get the Advanced Directive filled out and completed. CHIQUI/SS asked AKSHAT Singh to be a witness for the document. Both this SS, Samantha, and ICU nurse, and daughter Martha were present. The patient named Martha as his agent and stated he did not want a second or third agent. The patient was unclear of specific wishes at this time and therefore, did not want the Treatment directive to be filled out. The patient signed and dated the document. This SS and Samantha signed the document as witnesses . Will continue to follow.
[2019-11-23] MEDS ORDERED: SOD CHL GEL 0.5 OZ (AYR SALINE NASAL GEL) TUBE TOP PRN (12:00)
[2019-11-23] MEDS ORDERED: FUROSEMIDE 40 MG/4 ML INJ (LASIX) IVP NR (12:30)
[2019-11-23] MEDS ORDERED: CHOL100048 PO (12:47)
[2019-11-23] MEDS ORDERED: POLY17PO6 PO (12:47)
[2019-11-23] MEDS ORDERED: CYAN100T3 PO (12:47)
[2019-11-23] MEDS ORDERED: VITA80006 PO (12:47)
--- NOTE | 2019-11-23 12:53 | NUR ---
SPOKE WITH THE PT AND CALLED RONNIE IN [place] TO COMPLETE THE MED REC. THE ONLY THING [facility] HAS FILLED FOR HIM IS M[facility] ON 11-11-2019. OTC MEDS: VIT A VIT D VIT B
--- NOTE | 2019-11-23 13:18 | NUR ---
SPOKE WITH DR HAWK REGARDING WEANING FROM BALLOON PUMP. VO RECIEVED TO LEAVE IN 1:2 UNTIL PTT THERAPEUTIC AND HAVE PLASTIC SURGERY MANAGER REMOVE BALLOON BUMP. PLASTIC SURGERY MANAGER NOTIFIED. PT STATES BREATHING IS "ABOUT THE SAME". HE DOES C/O SOA AT TIMES ESPECIALLY LAYING FLAT. MONITORING CLOSELY.
--- NOTE | 2019-11-23 13:30 | NUR ---
Pastoral care visit.
[2019-11-23] MEDS ORDERED: fentaNYL INJECTION 100 MCG/2 ML AMP ONE (13:56)
[2019-11-23] MEDS ORDERED: ATROPINE INJECTION 1 MG/10 ML SYR (ABBOTT) ONE (13:57)
[2019-11-23] MEDS ORDERED: fentaNYL INJECTION 100 MCG/2 ML AMP IVP ONE (14:05)
--- NOTE | 2019-11-23 14:17 | NUR ---
RESTUARANT CREW WORKER STAFF AT BEDSIDE FOR REMOVAL OF BALLOON PUMP. PROCEDURE EXPLAINED TO PATIENT WITH VERBALIZING UNDERSTANDING. FENTANYL ADMINISTERED PER RESTUARANT CREW WORKER. PT TOLERATED REMOVAL WITHOUT DIFFICULTIES. MANUAL PRESSURE BEING HELD BY RESTUARANT CREW WORKER STAFF. NO ECTOPY NOTED, BUT ATROPINE AT BEDSIDE. VITALS MONITORED Q5MIN.
--- NOTE | 2019-11-23 15:02 | NUR ---
ATROPINE WAS PULLED FOR SHEATH PULL, BUT NOT NEEDED, ET NOT ADMIN
[2019-11-23] MEDS ORDERED: BUMETANIDE 1 MG/4 ML (BUMEX) VIAL IV NR (16:30)
[2019-11-23 17:00] LABS: CALCIUM 8.4 MG/DL (8.5-10.1); CREATININE SERUM 1.65 MG/DL (0.60-1.30); POTASSIUM 4.6 MMOL/L (3.6-5.0)
--- NOTE | 2019-11-23 18:07 | NUR ---
THIS RN HAS BEEN IN CONTACT WITH DR HAWK NUMEROUS TIMES THROUGHOUT THE DAY REGARDING LOW URINE OUTPUT. SEE EMAR FOR ORDERS. MULTIPLE ATTEMPTS TO FLUSH CATHETER WITH 40ML STERILE SALINE DONE WITH RETURN OF FLUSH AMOUNT. BLADDER SCAN SHOWS NO URINE. CATHETER BALLOON DEFLATED, CATHETER ADVANCED WITHOUT RESISTANCE AND BALLOON REINFLATED WITH NO SUBSEQUENT RETURN IN URINE.
[2019-11-23] MEDS ORDERED: fentaNYL INJECTION 100 MCG/2 ML AMP IVP PRN (18:45)
[2019-11-23] MEDS ORDERED: ACETAMINOPHEN 500 MG TAB (TYLENOL) PO PRN (18:45)
--- NOTE | 2019-11-23 18:59 | NUR ---
SPOKE WITH DR HAWK REGARDING LOW URINE OUTPUT. ADVISED BEDREST WAS ORDERED. ORDERS RECEIVED AND PLACED. SEE EMAR. ADVISED TO HOLD LASIX.
[2019-11-23] MEDS: DOBUTamine DRIP 250 ML IV SCH (19:07)
[2019-11-23] MEDS: APIXABAN 5 MG (ELIQUIS) TABLET PO SCH (20:15)
--- NOTE | 2019-11-23 22:17 | History & Physical ---
HPI History of Present Illness: 54 yo M that presented to ER due to worsening shortness of breath. Patient states that he has been getting worse over the last week to the point it was hard for him to walk around. States that he has not seen a doctor in 20 years prior to the last few weeks when he saw Dr Birmingham and quit drinking approximately 3 weeks ago. States that he has never been diagnosed with any medical problems. States that he has been a heavy drinker for the last 3 years. Has been drinking about 1 6 pack daily but on the weekends tends to have more. Never been hospitalized for his drinking or withdraw symptoms. States that he has stopped for several days in the past and denies any symptoms. Source: patient Exam Limitations: no limitations Date seen by provider: Nov 23, 2019 Time Seen by Provider: 09:15 Attending Physician Sergio Larkin MD PCP Santy Birmingham MD Consult Date of Admission Nov 22, 2019 at 16:40 Home Medications Home Medications Reviewed patient Home Medication Reconciliation performed by pharmacy medication reconciliations cardiopulmonary technician and eeg tech and/or nursing. Patients Allergies have been reviewed. Allergies Coded Allergies: No Known Drug Allergies (Unverified , 11/19/19) [id number] Hx Patient Social History Marrital Status: Employed/Student: employed Alcohol Use: Regular Use Recreational Drug Use: No Smoking Status: Current Everyday Smoker Type Used: Cigarettes 2nd Hand Smoke Exposure: No Recent Foreign Travel: No Contact w/other who traveled: No Recent Hopitalizations: No Recent Infectious Disease Expo: No Past Medical History EtOHism Review of Systems ([facility]) Constitutional: no symptoms reported; No chills, No fever EENTM: no symptoms reported; No mouth pain, No nose congestion, No nose pain, No throat pain Respiratory: cough, dyspnea on exertion, orthopnea, short of breath Cardiovascular: edema; No palpitations Gastrointestinal: no symptoms reported; No abdominal pain, No constipation, No diarrhea, No nausea, No vomiting Genitourinary: no symptoms reported; No dysuria, No frequency, No hematuria Musculoskeletal: no symptoms reported; No back pain, No joint pain, No muscle pain Skin: no symptoms reported; No lesions, No rash Psychiatric/Neurological: Denies Headache; Weakness Reviewed Test Results Reviewed Test Results Lab Laboratory Tests Test 11/22/19 22:57 11/23/19 03:00 11/23/19 13:00 11/23/19 16:34 Range/Units Glucometer 120 H 70-110 MG/DL White Blood Count 6.0 4.3-11.0 10^3/uL Red Blood Count 4.53 4.35-5.85 10^6/uL Hemoglobin 13.7 13.3-17.7 G/DL Hematocrit 42 40-54 % Mean Corpuscular Volume 93 80-99 FL Mean Corpuscular Hemoglobin 30 25-34 PG Mean Corpuscular Hemoglobin Concent 33 32-36 G/DL Red Cell Distribution Width 14.6 H 10.0-14.5 % Platelet Count 136 130-400 10^3/uL Mean Platelet Volume 12.2 H 7.4-10.4 FL Neutrophils (%) (Auto) 66 42-75 % Lymphocytes (%) (Auto) 23 12-44 % Monocytes (%) (Auto) 10 0-12 % Eosinophils (%) (Auto) 1 0-10 % Basophils (%) (Auto) 1 0-10 % Neutrophils # (Auto) 4.0 1.8-7.8 X 10^3 Lymphocytes # (Auto) 1.4 1.0-4.0 X 10^3 Monocytes # (Auto) 0.6 0.0-1.0 X 10^3 Eosinophils # (Auto) 0.0 0.0-0.3 10^3/uL Basophils # (Auto) 0.0 0.0-0.1 10^3/uL Activated Partial Thromboplast Time 37 H 32 24-35 SEC Sodium Level 135 133 L 135-145 MMOL/L Potassium Level 3.6 4.6 3.6-5.0 MMOL/L Chloride Level 99 98 98-107 MMOL/L Carbon Dioxide Level 22 19 L 21-32 MMOL/L Anion Gap 14 16 H 5-14 MMOL/L Blood Urea Nitrogen 22 H 25 H 7-18 MG/DL Creatinine 1.10 1.65 H 0.60-1.30 MG/DL Estimat Glomerular Filtration Rate > 60 44 BUN/Creatinine Ratio 20 15 Glucose Level 89 122 H 70-105 MG/DL Calcium Level 8.2 L 8.4 L 8.5-10.1 MG/DL Corrected Calcium 8.8 8.5-10.1 MG/DL Phosphorus Level 4.1 2.3-4.7 MG/DL Magnesium Level 1.9 1.6-2.4 MG/DL Total Bilirubin 1.8 H 0.1-1.0 MG/DL Aspartate Amino Transf (AST/SGOT) 41 H 5-34 U/L Alanine Aminotransferase (ALT/SGPT) 105 H 0-55 U/L Alkaline Phosphatase 89 40-136 U/L Total Protein 5.7 L 6.4-8.2 GM/DL Albumin 3.3 3.2-4.5 GM/DL Physical Exam-([facility]C) Physical Exam Vital Signs VS - Last 72 Hours, by Label 11/22/19 11/22/19 11/22/19 11/22/19 13:59 15:56 17:30 17:30 Temp 36.3 36.8 Pulse 160 126 112 135 Resp 22 20 B/P (MAP) 121/88 (99) 121/99 102/82 (89) Pulse Ox 95 96 O2 Delivery Room Air Room Air Nasal Cannula O2 Flow Rate 2.00 11/22/19 11/22/19 11/22/19 11/22/19 17:35 17:45 17:53 18:00 Pulse 98 126 98 Resp 18 B/P (MAP) 109/77 (88) 99/67 (78) Pulse Ox 95 96 93 O2 Delivery Nasal Cannula Nasal Cannula Nasal Cannula O2 Flow Rate 2.00 2.00 2.00 11/22/19 11/22/19 11/22/19 11/22/19 18:15 18:35 19:00 19:00 Temp 36.6 Pulse 98 110 82 84 Resp 23 B/P (MAP) 78/67 (71) Pulse Ox 93 92 O2 Delivery Nasal Cannula Nasal Cannula O2 Flow Rate 2.00 2.00 11/22/19 11/22/19 11/22/19 11/22/19 19:00 19:12 19:15 19:30 Pulse 86 85 85 79 Resp 17 16 B/P (MAP) 120/77 (91) 122/66 (84) 96/72 (80) Pulse Ox 92 94 93 O2 Delivery Nasal Cannula Nasal Cannula Nasal Cannula O2 Flow Rate 2.00 2.00 2.00 11/22/19 11/22/19 11/22/19 11/22/19 19:45 19:55 20:00 20:00 Pulse 82 87 80 Resp 12 12 B/P (MAP) 90/74 (79) 83/68 (73) Pulse Ox 95 96 95 O2 Delivery Nasal Cannula Nasal Cannula Nasal Cannula O2 Flow Rate 3.00 3.00 3.00 11/22/19 11/22/19 11/22/19 11/22/19 20:15 21:00 21:00 21:03 Pulse 89 88 85 84 Resp 23 11 16 B/P (MAP) 86/47 (60) 70/45 (53) 84/73 (77) Pulse Ox 94 95 96 O2 Delivery Nasal Cannula Nasal Cannula Nasal Cannula O2 Flow Rate 3.00 3.00 3.00 11/22/19 11/22/19 11/22/19 11/22/19 22:00 22:00 23:00 23:00 Pulse 100 101 81 75 Resp 18 14 B/P (MAP) 105/59 (74) 95/67 (76) Pulse Ox 92 95 O2 Delivery Nasal Cannula Nasal Cannula O2 Flow Rate 3.00 3.00 11/23/19 11/23/19 11/23/19 11/23/19 00:00 00:00 00:00 01:00 Pulse 115 90 100 Resp 12 B/P (MAP) 95/65 (75) Pulse Ox 95 95 O2 Delivery Nasal Cannula Nasal Cannula O2 Flow Rate 3.00 3.00 11/23/19 11/23/19 11/23/19 11/23/19 01:00 01:00 02:00 02:00 Temp 36.4 Pulse 79 105 90 91 Resp 19 15 B/P (MAP) 97/70 (79) 109/83 (92) Pulse Ox 95 93 O2 Delivery Nasal Cannula Nasal Cannula O2 Flow Rate 3.00 3.00 11/23/19 11/23/19 11/23/19 11/23/19 03:00 03:00 03:00 04:00 Temp 36.8 Pulse 98 72 Resp 17 B/P (MAP) 91/70 (77) Pulse Ox 94 93 O2 Delivery Nasal Cannula Nasal Cannula O2 Flow Rate 3.00 3.00 11/23/19 11/23/19 11/23/19 11/23/19 04:00 04:00 04:15 05:00 Pulse 90 86 80 114 Resp 25 16 B/P (MAP) 101/79 (86) 120/84 (96) Pulse Ox 92 96 O2 Delivery Nasal Cannula Nasal Cannula O2 Flow Rate 3.00 3.00 3/11/23/19 11/23/19 11/23/19 05:00 06:00 06:00 06:00 Pulse 73 81 74 80 Resp 14 14 13 B/P (MAP) 130/70 (90) 94/68 (77) 108/66 (80) Pulse Ox 95 94 97 O2 Delivery Nasal Cannula Nasal Cannula Nasal Cannula O2 Flow Rate 3.00 3.00 3.00 11/23/19 11/23/19 11/23/19 11/23/19 07:00 07:00 07:00 07:43 Pulse 93 96 81 Resp 14 B/P (MAP) 80/62 (68) Pulse Ox 96 95 O2 Delivery Nasal Cannula Nasal Cannula O2 Flow Rate 3.00 3.00 11/23/19 11/23/19 11/23/19 11/23/19 08:00 08:01 09:00 09:09 Pulse 97 90 94 96 B/P (MAP) 127/78 (94) 104/65 (78) Pulse Ox 97 97 O2 Delivery Nasal Cannula Nasal Cannula O2 Flow Rate 3.00 3.00 11/23/19 11/23/19 11/23/19 11/23/19 09:49 10:00 10:03 10:31 Pulse 73 64 96 64 Resp 13 B/P (MAP) 110/79 (89) 102/54 Pulse Ox 95 O2 Delivery Nasal Cannula O2 Flow Rate 3.00 11/23/19 11/23/19 11/23/19 11/23/19 11:00 11:02 11:56 12:00 Pulse 68 96 96 70 Resp 21 20 B/P (MAP) 91/67 (75) 102/68 (79) Pulse Ox 100 99 O2 Delivery Nasal Cannula Nasal Cannula O2 Flow Rate 3.00 3.00 11/23/19 11/23/19 11/23/19 11/23/19 12:00 12:03 12:09 12:58 Temp 37.1 Pulse 69 96 Pulse Ox 99 O2 Delivery Nasal Cannula O2 Flow Rate 2.00 11/23/19 11/23/19 11/23/19 11/23/19 13:00 13:55 14:00 14:17 Pulse 78 96 72 96 Resp 15 17 B/P (MAP) 120/67 (84) 122/69 (86) Pulse Ox 96 99 O2 Delivery Nasal Cannula Nasal Cannula O2 Flow Rate 3.00 3.00 11/23/19 11/23/19 11/23/19 11/23/19 15:00 16:00 16:00 16:26 Temp 36.4 Pulse 74 98 Resp 12 B/P (MAP) 138/95 (109) Pulse Ox 100 93 99 O2 Delivery Nasal Cannula Nasal Cannula Nasal Cannula O2 Flow Rate 3.00 3.00 2.00 11/23/19 11/23/19 11/23/19 11/23/19 16:38 17:00 18:00 19:00 Pulse 78 80 80 Resp 36 14 18 B/P (MAP) 121/73 (89) 116/94 (101) Pulse Ox 100 99 99 O2 Delivery Nasal Cannula Nasal Cannula Nasal Cannula Nasal Cannula O2 Flow Rate 2.00 3.00 3.00 3.00 11/23/19 11/23/19 11/23/19 11/23/19 19:00 19:07 19:19 20:00 Temp 36.4 Pulse 80 75 80 Resp 16 B/P (MAP) 132/117 129/93 (105) Pulse Ox 99 O2 Delivery Nasal Cannula O2 Flow Rate 3.00 11/23/19 11/23/19 20:04 21:19 Pulse 84 83 Resp 23 15 B/P (MAP) 143/79 (100) 123/94 (104) Pulse Ox 88 91 O2 Delivery Nasal Cannula Nasal Cannula O2 Flow Rate 3.00 3.00 Capillary Refill : Less Than 3 Seconds General Appearance: WD/WN, no apparent distress HEENT: PERRL/EOMI Neck: non-tender, full range of motion, supple Respiratory: lungs clear, normal breath sounds, no respiratory distress, other (conversational dyspnea) Cardiovascular: regular rate, rhythm (s/p cardioversion), systolic murmur Gastrointestinal: normal bowel sounds, soft, distended, tenderness Back: no CVA tenderness, no vertebral tenderness Extremities: normal range of motion, non-tender, pedal edema (2+ bilaterally) Neurologic/Psychiatric: 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, no motor/sensory deficits, alert, normal mood/affect, oriented x 3 Skin: normal color, warm/dry Lymphatic: no adenopathy Assessment/Plan Assessment/Plan Admission Status: Inpatient Order (span 2 midnights) Reason for Inpatient Admission: Patient requiring ICU care and consultation with cardiology (1) Atrial fibrillation with rapid ventricular response Status: Acute Assessment & Plan: - Cardiology Dr Corado consulted and managing, CLAUDETTE today with Cardioversion, patient currently in SR (2) Acute systolic CHF (congestive heart failure) Status: Acute Assessment & Plan: - Cardiology managing, new diagnosis (3) Cardiomyopathy, alcoholic Status: Chronic (4) Elevated LFTs Status: Acute Assessment & Plan: - Trending down, likely 2/2 to hepatic congestion (5) Acute kidney failure Status: Resolved (6) Hypokalemia Status: Resolved Clinical Quality Measures DVT/VTE Risk/Contraindication: Risk Factor Score Per Nursin RFS Level Per Nursing on Admit: 3=High Copy Copies To 1: SELF,SERGIO AMAYA MD, MD Nov 23, 2019 22:17
[2019-11-24] VITALS (20 sets, daily range): BP systolic 92–131; BP diastolic 69–102
[2019-11-24] MEDS: DOBUTamine DRIP 250 ML IV SCH ×3 (01:56→19:38)
[2019-11-24 03:37] LABS: BASOPHILS % (AUTO) 0 % (0-10); EOSINOPHILS % (AUTO) 0 % (0-10); HEMATOCRIT 44 % (40-54); HEMOGLOBIN 14.1 G/DL (13.3-17.7); LYMPHOCYTES # (AUTO) 0.5 X 10^3 (1.0-4.0); LYMPHOCYTES % (AUTO) 6 % (12-44); MEAN CORPUSCULAR HEMOGLOBIN 30 PG (25-34); MEAN CORPUSCULAR HGB CONC 32 G/DL (32-36); MEAN CORPUSCULAR VOLUME 92 FL (80-99); MEAN PLATELET VOLUME 11.7 FL (7.4-10.4); MONOCYTES # (AUTO) 0.7 X 10^3 (0.0-1.0); MONOCYTES % (AUTO) 8 % (0-12); NEUTROPHILS # (AUTO) 7.1 X 10^3 (1.8-7.8); NEUTROPHILS % (AUTO) 86 % (42-75); PLATELET COUNT 111 10^3/uL (130-400); RED CELL DISTRIBUTION WIDTH 14.6 % (10.0-14.5); WHITE BLOOD COUNT 8.3 10^3/uL (4.3-11.0)
[2019-11-24 03:51] LABS: CREATININE SERUM 1.66 MG/DL (0.60-1.30); MAGNESIUM 1.8 MG/DL (1.6-2.4); PHOSPHORUS 4.2 MG/DL (2.3-4.7); POTASSIUM 3.9 MMOL/L (3.6-5.0)
[2019-11-24 04:41] LABS: BAND NEUTROPHILS 4 %; HYPERSEGMENTED NEUT SLIGHT; LYMPHOCYTES % (MANUAL) 10 %; MONOCYTES % (MANUAL) 9 %; NEUTROPHILS % (MANUAL) 77 %; NUCLEATED RED BLOOD CELLS 1
[2019-11-24 04:42] LABS: HYPOCHROMASIA SLIGHT
[2019-11-24 04:44] LABS: ANISOCYTOSIS SLIGHT; BURR CELLS SLIGHT; HOWELL-JOLLY BODIES SLIGHT; POIKILOCYTOSIS SLIGHT
[2019-11-24] MEDS: POTASSIUM CL 10MEQ/50ML IVPB 50 ML IV SCH (05:01)
[2019-11-24] MEDS: KCL 20 MEQ TAB (K-DUR) PO SCH (05:02)
[2019-11-24] MEDS: MAGNESIUM 1 GM/100 ML IVPB 100 ML IV SCH (05:02)
[2019-11-24] MEDS: FUROSEMIDE 40 MG/4 ML INJ (LASIX) IVP SCH ×2 (05:04→17:33)
[2019-11-24] MEDS: meTOprolol 5 MG/5 ML (LOPRESSOR) VIAL IV SCH (05:04)
--- NOTE | 2019-11-24 07:21 | Diagnostic Imaging Report ---
INDICATION: Atrial fib. Dyspnea. Comparison with 11/23/2019. FINDINGS: There continues to be cardiomegaly. The upper lungs are clear. Persistent infiltrates noted in the lung bases with probable small pleural effusion. IMPRESSION: 1. There has been clearing of upper lobe pulmonary edema. 2. Persistent cardiomegaly with bilateral basilar infiltrates and pleural effusions. Dictated by: Dictated on workstation # [id number]
[2019-11-24] MEDS: AMIODARONE INJECTION 450 MG in D5W IV SOLUTION (EXCEL) 250 ML IV SCH (08:09)
[2019-11-24] MEDS: PANTOPRAZOLE 40 MG (PROTONIX) VIAL IV SCH (09:06)
[2019-11-24] MEDS: APIXABAN 5 MG (ELIQUIS) TABLET PO SCH ×2 (09:06→20:31)
--- NOTE | 2019-11-24 10:05 | Cardiology Progress Note ---
Subjective Date Seen by Provider: Nov 24, 2019 Time Seen by Provider: 10:03 Subjective/Events-last exam Patient is laying down in bed, feeling better, responded well to dobutamine drip Review of Systems General: No Chills, No Night Sweats, No Fatigue, No Malaise, No Appetite, No Other HEENT: No Head Aches, No Visual Changes, No Eye Pain, No Ear Pain, No Dysphasia, No Sinus Congestion, No Post Nasal Drip, No Sore Throat, No Other Pulmonary: Dyspnea; No Cough, No Pleuritic Chest Pain, No Other Cardiovascular: Edema; No: Chest Pain, Palpitations, Orthopnea, Paroxysmal Noc. Dyspnea, Lt Headedness, Other Objective-Cardiology Exam Last Set of Vital Signs Vital Signs 11/24/19 11/24/19 11/24/19 07:34 08:00 08:14 Temp 36.4 Pulse 76 Resp 15 B/P (MAP) 106/76 (86) Pulse Ox 97 O2 Delivery Nasal Cannula O2 Flow Rate 2.50 Capillary Refill : Less Than 3 Seconds I&O Intake and Output 11/24/19 00:00 Intake Total 2498 ml Output Total 1290 ml Balance 1208 ml Intake Oral 470 ml IV Total 2028 ml Output Urine Total 1290 ml General: Alert, Oriented X3, Cooperative HEENT: Atraumatic, PERRLA Neck: Supple, No JVD, No Thyromegaly Lungs: Normal Air Movement, Other (Bilateral rhonchi) Heart: Regular Rate, Normal S1, Normal S2, No Murmurs, Other (S3 present) Abdomen: Normal Bowel Sounds, Soft, No Tenderness, No Hepatosplenomegaly, No Masses Extremities: No Clubbing, No Cyanosis, Normal Pulses, No Tenderness/Swelling, Other (Moderate edema) Skin: No Rashes, No Breakdown, No Significant Lesion Neuro: Normal Gait, Normal Speech, Normal Tone, Sensation Intact Psych/Mental Status: Mental Status NL, Mood NL Results Lab Laboratory Tests 11/23/19 16:34 11/24/19 03:06 A/P-Cardiology Admission Diagnosis Congestive heart failure, acute left ventricular systolic dysfunction Atrial fibrillation Hypertension Pulmonary edema Assessment/Plan Paroxysmal atrial fibrillation status post electrical cardioversion, maintained on amiodarone and doing well. Congestive heart failure, acute left ventricular systolic dysfunction, ejection fraction 10 percent, nonischemic cardiomyopathy, intra-aortic balloon pump was removed yesterday, subsequently patient had no urine output, became oliguric. Started on dobutamine drip and appeared to be responding to it. I will continue on aggressive diuresis and dobutamine drip for the next 24 hours then I'll stop the drip and evaluate his status. Cardiac catheterization done showing mild coronary artery disease nonobstructive disease Borderline hypotension, better at this time. I am starting beta blockers and Entresto and evaluate tolerance and response Shortness of breath, pulmonary edema, responding to diuretics Elevated liver enzymes, could be alcoholic, possibility of passive hepatic congestion Tobaccoism, educated on smoking cessation Alcoholism, heavy drinking, educated on avoiding alcohol. Clinical Quality Measures DVT/VTE Risk/Contraindication: Risk Factor Score Per Nursin RFS Level Per Nursing on Admit: 3=High INDERJIT HAWK MD Nov 24, 2019 10:05
--- NOTE | 2019-11-24 11:29 | NUR ---
CM/SS visited with patient for follow up. The patient was sitting up in bed. He verbalized that he was feeling better today. He was short verbally in answers today. CM/SS explained to him what the role of the child welfare social worker was and this ss will follow to assess for any needs. The patient verbalized understanding. He reports that he does not have any questions or concerns at this time. According to the patients physician the patient is going to need a life vest. The life vest agency has been here and updated this staff that he is working on filling out financial application.
[2019-11-24] MEDS ORDERED: AMIODARONE 200 MG (CORDARONE) TAB ONE (11:55)
[2019-11-24] MEDS: AMIODARONE 200 MG (CORDARONE) TAB PO SCH (12:04)
[2019-11-24] MEDS: SACUBITRIL/VALSARTAN 24/26 MG (ENTRESTO) TABLET PO SCH ×2 (12:34→20:33)
--- NOTE | 2019-11-24 20:16 | Progress Note ---
Subjective Subjective/Events-last exam Patient doing well this AM. Denies any chest pain. Shortness of breath much improved. Tolerating PO diet. Review of Systems Pulmonary: Dyspnea, Cough Cardiovascular: Orthopnea; No: Chest Pain, Palpitations Gastrointestinal: No: Nausea, Vomiting, Abdominal Pain, Diarrhea, Constipation Genitourinary: Other (decreased UOP) Neurological: No: Weakness, Numbness Objective Exam Last Set of Vital Signs Vital Signs Date Time Temp Pulse Resp B/P (MAP) Pulse Ox O2 Delivery O2 Flow Rate FiO2 11/24/19 19:38 78/52 11/24/19 19:00 91 11/24/19 18:00 21 100 Nasal Cannula 3.00 11/24/19 16:00 36.6 Capillary Refill : Less Than 3 Seconds I&O Intake and Output 11/24/19 00:00 Intake Total 2498 ml Output Total 1290 ml Balance 1208 ml Intake Oral 470 ml IV Total 2028 ml Output Urine Total 1290 ml General: Alert, Oriented X3, Cooperative, No Acute Distress Lungs: Clear to Auscultation, Normal Air Movement Heart: Regular Rate, Other (systolic murmur 3/6) Abdomen: Normal Bowel Sounds, Soft, No Tenderness, No Masses Extremities: Other (2+ pitting edema bilaterally) Skin: No Rashes, No Breakdown Neuro: Normal Speech, Strength at 5/5 X4 Ext, Sensation Intact, Cranial Nerves 3-12 NL Psych/Mental Status: Mental Status NL, Mood NL Results/Procedures Lab Laboratory Tests 11/24/19 03:06: White Blood Count 8.3, Red Blood Count 4.76, Hemoglobin 14.1, Hematocrit 44, Mean Corpuscular Volume 92, Mean Corpuscular Hemoglobin 30, Mean Corpuscular Hemoglobin Concent 32, Red Cell Distribution Width 14.6H, Platelet Count 111L, Mean Platelet Volume 11.7H, Neutrophils (%) (Auto) 86H, Lymphocytes (%) (Auto) 6L, Monocytes (%) (Auto) 8, Eosinophils (%) (Auto) 0, Basophils (%) (Auto) 0, Neutrophils # (Auto) 7.1, Lymphocytes # (Auto) 0.5L, Monocytes # (Auto) 0.7, Eosinophils # (Auto) 0.0, Basophils # (Auto) 0.0, Neutrophils % (Manual) 77, Lymphocytes % (Manual) 10, Monocytes % (Manual) 9, Band Neutrophils 4, Nucleated Red Blood Cells 1, Hypersegmented Neutrophils SLIGHT, Polychromasia , Hypochromasia SLIGHT, Poikilocytosis SLIGHT, Anisocytosis SLIGHT, [place] Bodies SLIGHT, [place] Cells SLIGHT, Sodium Level 134L, Potassium Level 3.9, Chloride Level 99, Carbon Dioxide Level 22, Anion Gap 13, Blood Urea Nitrogen 27H, Creatinine 1.66H, Estimat Glomerular Filtration Rate 43, BUN/Creatinine Ratio 16, Glucose Level 168H, Calcium Level 8.0L, Phosphorus Level 4.2, Magnesium Level 1.8 Microbiology 11/22/19 MRSA Screen - Final, Complete MRSA not isolated Assessment/Plan Assessment/Plan (1) Atrial fibrillation with rapid ventricular response Status: Acute Assessment & Plan: - Cardiology Dr Corado consulted and managing, CLAUDETTE today with Cardioversion, patient currently in SR 11/23: Patient has maintained SR (2) Oliguria Status: Acute Assessment & Plan: 11/23: Started on dobutamine and diuresis, Accurate I/Os (3) Acute systolic CHF (congestive heart failure) Status: Acute Assessment & Plan: - Cardiology managing, new diagnosis (4) Cardiomyopathy, alcoholic Status: Chronic Assessment & Plan: 11/23: Cessation began 3 weeks ago (5) Elevated LFTs Status: Acute Assessment & Plan: - Trending down, likely 2/2 to hepatic congestion (6) Acute kidney failure Status: Acute Assessment & Plan: 11/23: Cr has trended up, continue to monitor (7) Hypokalemia Status: Resolved Clinical Quality Measures DVT/VTE Risk/Contraindication: Risk Factor Score Per Nursin RFS Level Per Nursing on Admit: 3=High SERGIO WRAY MD Nov 24, 2019 20:15
[2019-11-24] MEDS ORDERED: CARVEDILOL 3.125 MG (COREG) TABLET PO SCH (21:00)
[2019-11-25] VITALS (22 sets, daily range): BP systolic 83–139; BP diastolic 55–102
[2019-11-25 03:16] LABS: BASOPHILS % (AUTO) 0 % (0-10); EOSINOPHILS % (AUTO) 0 % (0-10); HEMATOCRIT 43 % (40-54); HEMOGLOBIN 14.2 G/DL (13.3-17.7); LYMPHOCYTES # (AUTO) 1.1 X 10^3 (1.0-4.0); LYMPHOCYTES % (AUTO) 12 % (12-44); MEAN CORPUSCULAR HEMOGLOBIN 30 PG (25-34); MEAN CORPUSCULAR HGB CONC 33 G/DL (32-36); MEAN CORPUSCULAR VOLUME 91 FL (80-99); MEAN PLATELET VOLUME 10.9 FL (7.4-10.4); MONOCYTES # (AUTO) 0.7 X 10^3 (0.0-1.0); MONOCYTES % (AUTO) 8 % (0-12); NEUTROPHILS # (AUTO) 6.9 X 10^3 (1.8-7.8); NEUTROPHILS % (AUTO) 79 % (42-75); PLATELET COUNT 116 10^3/uL (130-400); RED CELL DISTRIBUTION WIDTH 14.6 % (10.0-14.5); WHITE BLOOD COUNT 8.8 10^3/uL (4.3-11.0)
[2019-11-25] MEDS: DOBUTamine DRIP 250 ML IV SCH ×2 (03:40→08:48)
[2019-11-25 03:41] LABS: BUN/CREATININE RATIO 23; CALCIUM 7.6 MG/DL (8.5-10.1); CARBON DIOXIDE 23 MMOL/L (21-32); CHLORIDE 100 MMOL/L (98-107); CREATININE SERUM 1.24 MG/DL (0.60-1.30); GFR ESTIMATED > 60; GLUCOSE 96 MG/DL (70-105); MAGNESIUM 1.7 MG/DL (1.6-2.4); PHOSPHORUS 2.5 MG/DL (2.3-4.7); POTASSIUM 2.9 MMOL/L (3.6-5.0); SODIUM 134 MMOL/L (135-145)
--- NOTE | 2019-11-25 04:20 | Pulmonary Progress Note ---
Subjective Time Seen by a Provider: 04:16 Subjective/Events-last exam pt is dobutamine gtt now. Sepsis Event Evaluation Height, Weight, BMI Height: '" Weight: lbs. oz. kg; 41.00 BMI Method: Exam Exam Vital Signs Date Time Temp Pulse Resp B/P (MAP) Pulse Ox O2 Delivery O2 Flow Rate FiO2 11/25/19 04:00 Room Air 11/25/19 03:40 108 139/85 11/25/19 03:39 36.0 11/25/19 03:00 104 13 139/85 (103) 99 Room Air 11/25/19 02:00 103 14 104/80 (88) 95 Room Air 11/25/19 01:00 90 11/25/19 01:00 100 14 100/73 (82) 99 Room Air 11/25/19 00:00 Room Air 11/25/19 00:00 105 11 96/65 (75) 94 Room Air 11/24/19 23:13 36.2 Room Air 11/24/19 23:00 98 11 131/102 (112) 98 Nasal Cannula 3.00 11/24/19 22:00 106 13 108/84 (92) 96 Nasal Cannula 3.00 11/24/19 21:00 80 18 100/69 (79) 99 Nasal Cannula 3.00 11/24/19 20:00 Room Air 11/24/19 20:00 36.5 11/24/19 20:00 82 18 111/74 (86) 97 Nasal Cannula 3.00 11/24/19 20:00 Room Air 11/24/19 19:38 78/52 11/24/19 19:00 91 11/24/19 19:00 90 33 103/80 (88) 96 Nasal Cannula 3.00 11/24/19 19:00 Nasal Cannula 1.00 11/24/19 18:00 83 21 104/71 (82) 100 Nasal Cannula 3.00 11/24/19 17:00 90 11 103/74 (84) 100 Nasal Cannula 3.00 11/24/19 16:00 Nasal Cannula 1.00 11/24/19 16:00 87 23 110/88 (95) Nasal Cannula 3.00 11/24/19 16:00 36.6 11/24/19 15:00 87 15 102/80 (87) Nasal Cannula 3.00 11/24/19 14:00 85 17 109/83 (92) Nasal Cannula 3.00 11/24/19 13:00 79 11 125/73 (90) 94 Nasal Cannula 3.00 11/24/19 12:41 Nasal Cannula 1.00 11/24/19 12:40 82 11/24/19 12:04 88 107/78 11/24/19 12:00 36.0 11/24/19 11:45 81 17 100/82 (88) 96 Nasal Cannula 3.00 11/24/19 08:14 Nasal Cannula 2.50 11/24/19 08:00 76 15 106/76 (86) 97 Nasal Cannula 3.00 11/24/19 07:34 36.4 11/24/19 06:47 74 11/24/19 05:49 72 99/79 (86) 95 Nasal Cannula 3.00 11/24/19 05:19 80 19 92/72 (79) 96 Nasal Cannula 3.00 11/24/19 04:52 36.3 11/24/19 04:19 77 17 116/84 (95) 94 Nasal Cannula 3.00 I & O 11/25/19 07:00 Intake Total 2840 ml Output Total 2925 ml Balance -85 ml Height & Weight Height: '" Weight: lbs. oz. kg; 41.00 BMI Method: General Appearance: WD/WN, Mild Distress HEENT: PERRL/EOMI, Pharynx Normal, Moist Mucous Membranes Neck: Full Range of Motion, Normal Inspection Respiratory: Lungs Clear, Normal Breath Sounds, No Accessory Muscle Use, No Respiratory Distress, Decreased Breath Sounds Cardiovascular: No Edema, No JVD, Irregularly Irregular, Tachycardia Capillary Refill: Less Than 3 Seconds Gastrointestinal: normal bowel sounds, soft, distended, tenderness Extremity: Normal Capillary Refill, Normal Inspection, Pedal Edema Neurologic/Psychiatric: Alert, Oriented x3 Skin: Normal Color, Warm/Dry Results Lab Laboratory Tests 11/23/19 16:34 11/24/19 03:06 11/25/19 03:08 Assessment/Plan Assessment/Plan cardiomyopathy with EF of 5-10% -currenlty on Dobutamine gtt -Balloon pump has been d/c'd Pulmonary edema -Lasix -Monitor Hypotension -- improved -Monitor Hypokalemia, hypomag -replace Afib tobacco and alcohol dependance -Monitor -education Probable AMNA -Out pt testing RAFAELA SHELDON DO Nov 25, 2019 04:20
[2019-11-25] MEDS: POTASSIUM CL 10MEQ/50ML IVPB 50 ML IV SCH ×5 (05:30→08:47)
[2019-11-25] MEDS: MAGNESIUM 1 GM/100 ML IVPB 100 ML IV SCH ×3 (05:30→06:31)
[2019-11-25] MEDS: KCL 20 MEQ TAB (K-DUR) PO SCH (05:30)
[2019-11-25] MEDS: FUROSEMIDE 40 MG/4 ML INJ (LASIX) IVP SCH ×2 (05:30→17:23)
--- NOTE | 2019-11-25 07:46 | Diagnostic Imaging Report ---
INDICATION: Dyspnea COMPARISON: 11/24/2019 TECHNIQUE: Single radiograph chest dated 11/25/2019. FINDINGS: The cardiac silhouette is enlarged, though stable. Increasing central pulmonary vascular congestion. Improved left-sided pleural-parenchymal opacity with worsening right basilar pleural-parenchymal opacity. No pneumothorax. No acute osseous abnormality. IMPRESSION: Worsening central pulmonary vascular congestion with stable cardiomegaly. Worsening small right basilar pleural-parenchymal opacity with improved left basilar pleural-parenchymal opacity. These are felt related to a combination of pleural fluid with adjacent atelectasis and/or infiltrate. Dictated by: Dictated on workstation # [id number]
--- NOTE | 2019-11-25 08:00 | NUR ---
THIS NURSE SPOKE WITH DR HAWK, ORDERS GIVEN TO STOP DOBUTAMINE DRIP AND TO DC ZIMMERMAN CATH. ORDERS WRITTEN DOWN AND REPEATED BACK.
[2019-11-25] MEDS: meTOprolol TARTRATE 25 MG (LOPRESSOR) TABLET PO SCH ×2 (08:47→20:52)
[2019-11-25] MEDS: SACUBITRIL/VALSARTAN 24/26 MG (ENTRESTO) TABLET PO SCH ×2 (08:47→20:52)
[2019-11-25] MEDS: APIXABAN 5 MG (ELIQUIS) TABLET PO SCH ×2 (08:47→20:51)
[2019-11-25] MEDS: PANTOPRAZOLE 40 MG (PROTONIX) VIAL IV SCH (08:47)
[2019-11-25] MEDS: AMIODARONE 200 MG (CORDARONE) TAB PO SCH ×2 (08:48→20:52)
[2019-11-25] MEDS ORDERED: KCL 20 MEQ TAB (K-DUR) PO ONE (09:00)
--- NOTE | 2019-11-25 09:03 | Cardiology Progress Note ---
Subjective Date Seen by Provider: Nov 25, 2019 Time Seen by Provider: 09:01 Subjective/Events-last exam Patient is laying down in bed, back to atrial fibrillation, swelling is improving Review of Systems General: No Chills, No Night Sweats, No Fatigue, No Malaise, No Appetite, No Other HEENT: No Head Aches, No Visual Changes, No Eye Pain, No Ear Pain, No Dysphasia, No Sinus Congestion, No Post Nasal Drip, No Sore Throat, No Other Pulmonary: Dyspnea; No Cough, No Pleuritic Chest Pain, No Other Cardiovascular: Edema; No: Chest Pain, Palpitations, Orthopnea, Paroxysmal Noc. Dyspnea, Lt Headedness, Other Objective-Cardiology Exam Last Set of Vital Signs Vital Signs 11/24/19 11/25/19 11/25/19 23:00 06:00 07:00 Temp 36.0 Pulse 107 Resp 12 B/P (MAP) 101/84 (90) Pulse Ox 98 O2 Delivery Room Air O2 Flow Rate 3.00 Capillary Refill : Less Than 3 Seconds I&O Intake and Output0 11/25/19 00:00 Intake Total 3040 ml Output Total 2825 ml Balance 215 ml Intake Oral 2290 ml IV Total 750 ml Output Urine Total 2825 ml General: Alert, Oriented X3, Cooperative, No Acute Distress HEENT: Atraumatic, PERRLA Neck: Supple, No JVD, No Thyromegaly Lungs: Clear to Auscultation, Normal Air Movement Heart: Normal S1, Normal S2, Other (atrial fibrillation) Abdomen: Normal Bowel Sounds, Soft, No Tenderness, No Masses Extremities: Other (peripheral edema) Skin: No Rashes, No Breakdown Neuro: Normal Speech, Strength at 5/5 X4 Ext, Sensation Intact, Cranial Nerves 3-12 NL Psych/Mental Status: Mental Status NL, Mood NL Results Lab Laboratory Tests 11/25/19 03:08 A/P-Cardiology Admission Diagnosis Congestive heart failure, acute left ventricular systolic dysfunction Atrial fibrillation Hypertension Pulmonary edema Assessment/Plan Paroxysmal atrial fibrillation status post electrical cardioversion, back to atrial fibrillation, continue on amiodarone, change Coreg to Lopressor for better heart rate control and monitor. Congestive heart failure, acute left ventricular systolic dysfunction, ejection fraction 10 percent, nonischemic cardiomyopathy, intra-aortic balloon pump, responded well to dobutamine drip, I will stop the drip at this point after 48 hours of treatment and continue with Lasix IV, monitor tolerance and response. Cardiac catheterization done showing mild coronary artery disease nonobstructive disease Borderline hypotension, better at this time. And tinea to monitor Shortness of breath, pulmonary edema, responding to diuretics Elevated liver enzymes, could be alcoholic, possibility of passive hepatic congestion Tobaccoism, educated on smoking cessation Alcoholism, heavy drinking, educated on avoiding alcohol. Clinical Quality Measures DVT/VTE Risk/Contraindication: Risk Factor Score Per Nursin RFS Level Per Nursing on Admit: 3=High INDERJIT HAWK MD Nov 25, 2019 9:03 am
--- NOTE | 2019-11-25 09:40 | NUR ---
CM/SS to clarify information CM/SS called Vinnie with [employer] and he stated that he has not had a referral for a life vest; therefore, they have not started filling out an application.
--- NOTE | 2019-11-25 14:14 | NUR ---
THIS NURSE NOTIFIED DR HAWK PT IS HYPOTENSIVE. LAST FEW BP HAVE BEEN 77/54, 83/63, AND 86/73. PT STATES HE IS LIGHTHEADED WHEN HE MOVES AROUND. DR HAWK ORDERED TO HOLD ANY BP MEDICATIONS AND TO MONITOR FOR NOW. WILL CONTINUE TO MONITOR.
--- NOTE | 2019-11-25 17:20 | NUR ---
THIS NURSE NOTIFIED DR HAWK PT SBP HAS BEEN IN THE 80S. THIS NURSE ASKED IF DR HAWK WOULD LIKE HER TO HOLD 1700 LAXIS. ORDERS GIVEN FOR 20 MG OF LAXIS IVP. SEE ORDER HX. WILL CONTINUE TO MONITOR.
[2019-11-25] MEDS ORDERED: FUROSEMIDE 40 MG/4 ML INJ (LASIX) IVP NR (17:30)
--- NOTE | 2019-11-25 22:01 | Progress Note ---
Subjective Subjective/Events-last exam Doing much better today. Sitting up in chair. Tolerating PO diet. Review of Systems Pulmonary: Dyspnea (with exertion); No Cough Cardiovascular: No: Chest Pain, Palpitations Gastrointestinal: No: Nausea, Vomiting, Abdominal Pain Neurological: No: Weakness Objective Exam Last Set of Vital Signs Vital Signs Date Time Temp Pulse Resp B/P (MAP) Pulse Ox O2 Delivery O2 Flow Rate FiO2 11/25/19 19:15 36.4 11/25/19 19:00 102 11/25/19 18:00 20 98/76 (83) 89 Room Air 11/24/19 23:00 3.00 Capillary Refill : Greater Than 3 Seconds I&O Intake and Output 11/25/19 00:00 Intake Total 3040 ml Output Total 2825 ml Balance 215 ml Intake Oral 2290 ml IV Total 750 ml Output Urine Total 2825 ml General: Alert, Oriented X3, Cooperative, No Acute Distress Lungs: Clear to Auscultation, Normal Air Movement Heart: Regular Rate, Other (systolic murmur) Abdomen: Normal Bowel Sounds, Soft, No Tenderness, No Masses Extremities: No Edema, No Tenderness/Swelling Skin: No Rashes, No Breakdown Neuro: Strength at 5/5 X4 Ext, Sensation Intact, Cranial Nerves 3-12 NL Psych/Mental Status: Mental Status NL, Mood NL Results/Procedures Lab Laboratory Tests 11/25/19 03:08: White Blood Count 8.8, Red Blood Count 4.71, Hemoglobin 14.2, Hematocrit 43, Mean Corpuscular Volume 91, Mean Corpuscular Hemoglobin 30, Mean Corpuscular Hemoglobin Concent 33, Red Cell Distribution Width 14.6H, Platelet Count 116L, Mean Platelet Volume 10.9H, Neutrophils (%) (Auto) 79H, Lymphocytes (%) (Auto) 12, Monocytes (%) (Auto) 8, Eosinophils (%) (Auto) 0, Basophils (%) (Auto) 0, Neutrophils # (Auto) 6.9, Lymphocytes # (Auto) 1.1, Monocytes # (Auto) 0.7, Eosinophils # (Auto) 0.0, Basophils # (Auto) 0.0, Sodium Level 134L, Potassium Level 2.9L, Chloride Level 100, Carbon Dioxide Level 23, Anion Gap 11, Blood Urea Nitrogen 28H, Creatinine 1.24, Estimat Glomerular Filtration Rate > 60, BUN/Creatinine Ratio 23, Glucose Level 96, Calcium Level 7.6L, Phosphorus Level 2.5, Magnesium Level 1.7 Microbiology 11/22/19 MRSA Screen - Final, Complete MRSA not isolated Assessment/Plan Assessment/Plan (1) Atrial fibrillation with rapid ventricular response Status: Acute Assessment & Plan: - Cardiology Dr Corado consulted and managing, CLAUDETTE today with Cardioversion, patient currently in SR 11/23: Patient has maintained SR 11/24: SR (2) Oliguria Status: Acute Assessment & Plan: 11/23: Started on dobutamine and diuresis, Accurate I/Os 11/24: UOP improved, continue lasix (3) Acute systolic CHF (congestive heart failure) Status: Acute Assessment & Plan: - Cardiology managing, new diagnosis (4) Cardiomyopathy, alcoholic Status: Chronic Assessment & Plan: 11/23: Cessation began 3 weeks ago (5) Elevated LFTs Status: Acute Assessment & Plan: - Trending down, likely 2/2 to hepatic congestion (6) Acute kidney failure Status: Resolved Assessment & Plan: 11/23: Cr has trended up, continue to monitor (7) Hypokalemia Status: Resolved Clinical Quality Measures DVT/VTE Risk/Contraindication: Risk Factor Score Per Nursin RFS Level Per Nursing on Admit: 3=High SERGIO WRAY MD Nov 25, 2019 22:01
[2019-11-26] VITALS (17 sets, daily range): BP systolic 80–119; BP diastolic 65–101
[2019-11-26 03:12] LABS: BASOPHILS % (AUTO) 0 % (0-10); EOSINOPHILS # (AUTO) 0.1 10^3/uL (0.0-0.3); EOSINOPHILS % (AUTO) 1 % (0-10); HEMATOCRIT 47 % (40-54); HEMOGLOBIN 15.2 G/DL (13.3-17.7); LYMPHOCYTES # (AUTO) 1.1 X 10^3 (1.0-4.0); LYMPHOCYTES % (AUTO) 15 % (12-44); MEAN CORPUSCULAR HEMOGLOBIN 30 PG (25-34); MEAN CORPUSCULAR HGB CONC 33 G/DL (32-36); MEAN CORPUSCULAR VOLUME 91 FL (80-99); MEAN PLATELET VOLUME 11.2 FL (7.4-10.4); MONOCYTES # (AUTO) 0.5 X 10^3 (0.0-1.0); MONOCYTES % (AUTO) 6 % (0-12); NEUTROPHILS # (AUTO) 5.8 X 10^3 (1.8-7.8); NEUTROPHILS % (AUTO) 78 % (42-75); PLATELET COUNT 130 10^3/uL (130-400); RED CELL DISTRIBUTION WIDTH 14.6 % (10.0-14.5); WHITE BLOOD COUNT 7.5 10^3/uL (4.3-11.0)
[2019-11-26 03:28] LABS: CALCIUM 7.7 MG/DL (8.5-10.1); CREATININE SERUM 1.25 MG/DL (0.60-1.30); MAGNESIUM 2.1 MG/DL (1.6-2.4); PHOSPHORUS 2.7 MG/DL (2.3-4.7); POTASSIUM 4.1 MMOL/L (3.6-5.0)
[2019-11-26] MEDS: POTASSIUM CL 10MEQ/50ML IVPB 50 ML IV SCH (07:09)
[2019-11-26] MEDS: MAGNESIUM 1 GM/100 ML IVPB 100 ML IV SCH (07:09)
[2019-11-26] MEDS: KCL 20 MEQ TAB (K-DUR) PO SCH (07:09)
--- NOTE | 2019-11-26 07:21 | Diagnostic Imaging Report ---
EXAMINATION: Portable erect AP chest at 222h. INDICATION: Dyspnea The cardiomegaly noted on the prior exam of 11/25/2019 is again evident and no different. However the density in the right lung base seen on the previous study is somewhat greater. The central pulmonary vascularity is also slightly more striking than on the prior exam. The left lung base is not well penetrated and difficult to assess. The mediastinum is not widened. The osseous structures are intact. IMPRESSION: The appearance of the chest has worsened since the prior exam as there does appear to greater involvement of the right lung base by pneumonia/atelectasis and fluid. There also appears to be somewhat greater pulmonary edema than on the prior study. A follow-up exam would be recommended for continued evaluation. Dictated by: Dictated on workstation # [id number]
[2019-11-26] MEDS: APIXABAN 5 MG (ELIQUIS) TABLET PO SCH ×2 (08:04→21:18)
[2019-11-26] MEDS: PANTOPRAZOLE 40 MG (PROTONIX) VIAL IV SCH (08:04)
[2019-11-26] MEDS: FUROSEMIDE 40 MG/4 ML INJ (LASIX) IVP SCH ×2 (08:04→18:18)
[2019-11-26] MEDS: SACUBITRIL/VALSARTAN 24/26 MG (ENTRESTO) TABLET PO SCH ×2 (08:04→21:19)
[2019-11-26] MEDS: meTOprolol TARTRATE 25 MG (LOPRESSOR) TABLET PO SCH ×2 (08:04→21:18)
[2019-11-26] MEDS: AMIODARONE 200 MG (CORDARONE) TAB PO SCH ×2 (08:04→21:18)
--- NOTE | 2019-11-26 09:11 | Cardiology Progress Note ---
Subjective Date Seen by Provider: Nov 26, 2019 Time Seen by Provider: 09:07 Subjective/Events-last exam Patient is in bed, feeling better Review of Systems General: No Chills, No Night Sweats, No Fatigue, No Malaise, No Appetite, No Other HEENT: No Head Aches, No Visual Changes, No Eye Pain, No Ear Pain, No Dysphasia, No Sinus Congestion, No Post Nasal Drip, No Sore Throat, No Other Pulmonary: Dyspnea; No Cough, No Pleuritic Chest Pain, No Other Cardiovascular: Edema; No: Chest Pain, Palpitations, Orthopnea, Paroxysmal Noc. Dyspnea, Lt Headedness, Other Objective-Cardiology Exam Last Set of Vital Signs Vital Signs 11/24/19 11/26/19 11/26/19 11/26/19 23:00 06:00 06:55 08:00 Temp 36.7 Pulse 82 Resp 26 B/P (MAP) 119/78 (92) Pulse Ox 98 O2 Delivery Room Air O2 Flow Rate 3.00 Capillary Refill : Greater Than 3 Seconds I&O Intake and Output 11/25/19 23:59 Intake Total 2535 ml Output Total 6300 ml Balance -3765 ml Intake Oral 1985 ml IV Total 550 ml Output Urine Total 6300 ml General: Alert, Oriented X3, Cooperative, No Acute Distress HEENT: Atraumatic, PERRLA Neck: Supple, No JVD, No Thyromegaly Lungs: Clear to Auscultation, Normal Air Movement, Other Heart: Regular Rate, Normal S1, Other (systolic murmur) Abdomen: Normal Bowel Sounds, Soft, No Tenderness, No Masses Extremities: No Tenderness/Swelling, Other Skin: No Rashes, No Breakdown Neuro: Strength at 5/5 X4 Ext, Sensation Intact, Cranial Nerves 3-12 NL Psych/Mental Status: Mental Status NL, Mood NL Results Lab Laboratory Tests 11/26/19 03:05 A/P-Cardiology Admission Diagnosis Congestive heart failure, acute left ventricular systolic dysfunction Atrial fibrillation Hypertension Pulmonary edema Assessment/Plan Paroxysmal atrial fibrillation status post electrical cardioversion, back to atrial fibrillation, continue on amiodarone, continue to monitor Congestive heart failure, acute left ventricular systolic dysfunction, ejection fraction 10 percent, nonischemic cardiomyopathy, intra-aortic balloon pump, responded well to dobutamine drip, borderline hypotensive, will try cardioversion again, continue current meds Cardiac catheterization done showing mild coronary artery disease nonobstructive disease Borderline hypotension, better at this time. planning for another cardioversion today Shortness of breath, pulmonary edema, responding to diuretics Elevated liver enzymes, could be alcoholic, possibility of passive hepatic congestion Tobaccoism, educated on smoking cessation Alcoholism, heavy drinking, educated on avoiding alcohol. Clinical Quality Measures DVT/VTE Risk/Contraindication: Risk Factor Score Per Nursin RFS Level Per Nursing on Admit: 3=High INDERJIT HAWK MD Nov 26, 2019 09:11
[2019-11-26] MEDS ORDERED: NS (IVPB) 250 ML ONE (09:23)
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
--- NOTE | 2019-11-26 15:40 | NUR ---
pt refuses to leave bp cuff and spo2 monitor on t/o this shift. agrees to leaving telemetry leads on for monitor but that is all. so vital signs will be only q4 hours until pt decides to leave monitors on.
--- NOTE | 2019-11-26 16:08 | NUR ---
CM/SS follow up. The patients daughter Martha was present in the room and brought supporting documents for the patients life [employer]. This CM/SS copied and faxed to e-mail. CM/SS sent a copy of the supporting documents to Vinnie from [employer] via e-mail. CM/SS also faxed the supporting documents to [employer] ([phone]). The patients daughter is paying for the deposit of 250 dollars via bank card over the phone. No other needs at this time.
--- NOTE | 2019-11-26 21:04 | Progress Note ---
Subjective Subjective/Events-last exam Patient feeling much better today. Breathing more comfortable. NPO for cardioversion today. Review of Systems Pulmonary: Dyspnea; No Cough Cardiovascular: No: Chest Pain, Palpitations Gastrointestinal: No: Nausea, Vomiting, Abdominal Pain Neurological: No: Weakness, Incoordination Objective Exam Last Set of Vital Signs Vital Signs Date Time Temp Pulse Resp B/P (MAP) Pulse Ox O2 Delivery O2 Flow Rate FiO2 11/26/19 20:00 37.0 11/26/19 19:55 96 19 98/86 (90) 96 Room Air 11/24/19 23:00 3.00 Capillary Refill : Less Than 3 Seconds I&O Intake and Output 11/25/19 23:59 Intake Total 2535 ml Output Total 6300 ml Balance -3765 ml Intake Oral 1985 ml IV Total 550 ml Output Urine Total 6300 ml General: Alert, Oriented X3, Cooperative, No Acute Distress HEENT: Mucous Memb Moist/Gallant Lungs: Clear to Auscultation, Normal Air Movement Heart: Other (irregular rate with systolic murmur) Abdomen: Normal Bowel Sounds, Soft, No Tenderness, No Masses Extremities: Other (1+ pitting edema) Skin: No Rashes, No Breakdown Neuro: Normal Speech, Strength at 5/5 X4 Ext, Cranial Nerves 3-12 NL Results/Procedures Lab Laboratory Tests 11/26/19 03:05: White Blood Count 7.5, Red Blood Count 5.14, Hemoglobin 15.2, Hematocrit 47, Mean Corpuscular Volume 91, Mean Corpuscular Hemoglobin 30, Mean Corpuscular Hemoglobin Concent 33, Red Cell Distribution Width 14.6H, Platelet Count 130, Mean Platelet Volume 11.2H, Neutrophils (%) (Auto) 78H, Lymphocytes (%) (Auto) 15, Monocytes (%) (Auto) 6, Eosinophils (%) (Auto) 1, Basophils (%) (Auto) 0, Neutrophils # (Auto) 5.8, Lymphocytes # (Auto) 1.1, Monocytes # (Auto) 0.5, Eosinophils # (Auto) 0.1, Basophils # (Auto) 0.0, Sodium Level 132L, Potassium Level 4.1, Chloride Level 100, Carbon Dioxide Level 20L, Anion Gap 12, Blood Urea Nitrogen 30H, Creatinine 1.25, Estimat Glomerular Filtration Rate 60, BUN/Creatinine Ratio 24, Glucose Level 112H, Calcium Level 7.7L, Phosphorus Level 2.7, Magnesium Level 2.1 Microbiology 11/22/19 MRSA Screen - Final, Complete MRSA not isolated Assessment/Plan Assessment/Plan (1) Atrial fibrillation with rapid ventricular response Status: Acute Assessment & Plan: - Cardiology Dr Corado consulted and managing, CLAUDETTE today with Cardioversion, patient currently in SR 11/23: Patient has maintained SR 11/24: SR 11/25: A Fib this AM, Mickie to Cardioversion today (2) Oliguria Status: Acute Assessment & Plan: 11/23: Started on dobutamine and diuresis, Accurate I/Os 11/24: UOP improved, continue lasix (3) Acute systolic CHF (congestive heart failure) Status: Acute Assessment & Plan: - Cardiology managing, new diagnosis (4) Cardiomyopathy, alcoholic Status: Chronic Assessment & Plan: 11/23: Cessation began 3 weeks ago (5) Elevated LFTs Status: Acute Assessment & Plan: - Trending down, likely 2/2 to hepatic congestion (6) Acute kidney failure Status: Resolved Assessment & Plan: 11/23: Cr has trended up, continue to monitor (7) Hypokalemia Status: Resolved Clinical Quality Measures DVT/VTE Risk/Contraindication: Risk Factor Score Per Nursin RFS Level Per Nursing on Admit: 3=High SERGIO WRAY MD Nov 26, 2019 21:04
[2019-11-27] VITALS (17 sets, daily range): BP systolic 92–135; BP diastolic 56–114
[2019-11-27 03:09] LABS: BASOPHILS % (AUTO) 0 % (0-10); EOSINOPHILS # (AUTO) 0.1 10^3/uL (0.0-0.3); EOSINOPHILS % (AUTO) 2 % (0-10); HEMATOCRIT 48 % (40-54); HEMOGLOBIN 15.5 G/DL (13.3-17.7); LYMPHOCYTES # (AUTO) 1.1 X 10^3 (1.0-4.0); LYMPHOCYTES % (AUTO) 17 % (12-44); MEAN CORPUSCULAR HEMOGLOBIN 30 PG (25-34); MEAN CORPUSCULAR HGB CONC 33 G/DL (32-36); MEAN CORPUSCULAR VOLUME 91 FL (80-99); MEAN PLATELET VOLUME 11.2 FL (7.4-10.4); MONOCYTES # (AUTO) 0.6 X 10^3 (0.0-1.0); MONOCYTES % (AUTO) 9 % (0-12); NEUTROPHILS % (AUTO) 73 % (42-75); PLATELET COUNT 136 10^3/uL (130-400); RED CELL DISTRIBUTION WIDTH 14.5 % (10.0-14.5); WHITE BLOOD COUNT 6.8 10^3/uL (4.3-11.0)
[2019-11-27 03:30] LABS: BUN/CREATININE RATIO 25; CARBON DIOXIDE 20 MMOL/L (21-32); CHLORIDE 102 MMOL/L (98-107); CREATININE SERUM 1.06 MG/DL (0.60-1.30); GFR ESTIMATED > 60; GLUCOSE 120 MG/DL (70-105); PHOSPHORUS 2.9 MG/DL (2.3-4.7); POTASSIUM 3.9 MMOL/L (3.6-5.0); SODIUM 134 MMOL/L (135-145)
[2019-11-27] MEDS: KCL 20 MEQ TAB (K-DUR) PO SCH (03:53)
[2019-11-27] MEDS: MAGNESIUM 1 GM/100 ML IVPB 100 ML IV SCH (03:53)
[2019-11-27] MEDS: POTASSIUM CL 10MEQ/50ML IVPB 50 ML IV SCH (03:53)
[2019-11-27] MEDS: FUROSEMIDE 40 MG/4 ML INJ (LASIX) IVP SCH (07:06)
--- NOTE | 2019-11-27 07:39 | Diagnostic Imaging Report ---
Indication: Dyspnea. Compared: 11/26/2019 Findings: Enlargement of the cardiac silhouette unchanged in magnitude and configuration, however there is reduction in vascular distention and improvements in perihilar opacity likely reflective of a decrease in edema. Small amounts of pleural fluid or also believed decreased. Impression: Favorable changes suggest improvements in failure pattern. Dictated by: Dictated on workstation # [id number]
[2019-11-27] MEDS ORDERED: LIDOCAINE 2% VISCOUS 15 ML UDC PO ONE (09:45)
[2019-11-27] MEDS ORDERED: MIDAZOLAM 2 MG/2 ML (VERSED) VIAL ONE (10:14)
[2019-11-27] MEDS ORDERED: proPOfol 200 MG/20 ML (DIPRIVAN) VIAL IV ONE (10:15)
--- NOTE | 2019-11-27 10:45 | NUR ---
CARDIOVERSION TIMELINE: 1010: ANESTHESIA IN ROOM. 1018: DR. CRENSHAW IN ROOM. 1020: FIRST SHOCK, 120J GIVEN BY THIS RN. 1021: PT CONVERTED TO SINUS RHYTHM, VERIFIED BY DR. CRENSHAW. 1023: PT BECAME BRADYCARDIC AND THEN WENT BACK INTO A-FIB. 1025: SECOND SHOCK, 120J GIVEN BY THIS RN. PT AGAIN CONVERTED TO SINUS RHYTHM AND THEN BACK INTO A-FIB. DR. CRENSHAW STATED PT WILL NOT BE CARDIOVERTED AGAIN, WILL USE MEDICATION TO CONTROL RATE. THIS RN APPLIED LIFE [employer]. ANESTHESIA ADMINISTERED A TOTAL OF 2 OF VERSED AND 40 OF PROPOFOL DURING PROCEDURE.
--- NOTE | 2019-11-27 11:07 | Progress Note - Cardiology ---
Cardiology SOAP Progress Note Subjective: Shortness of breath better No cp or palp or syncope Gen malaise and weakness No n/v/d Objective: I&O/Vital Signs 11/26/19 11/26/19 11/27/19 11/27/19 23:45 23:55 00:00 01:00 Temp 36.6 36.6 Pulse 105 105 98 Resp 20 14 B/P (MAP) 112/80 (91) 112/80 (91) Pulse Ox 96 O2 Delivery Room Air Room Air Room Air 11/27/19 11/27/19 11/27/19 11/27/19 01:00 02:00 03:00 03:53 Temp 36.4 Pulse 107 98 82 93 Resp 20 21 20 18 B/P (MAP) 111/86 (94) 92/63 (73) 115/86 (96) 110/84 (93) O2 Delivery Room Air Room Air Room Air Room Air 11/27/19 11/27/19 11/27/19 11/27/19 03:55 04:00 05:00 06:00 Pulse 98 108 92 Resp 16 15 20 B/P (MAP) 117/56 (76) 102/81 (88) 112/94 (100) Pulse Ox 96 O2 Delivery Room Air Room Air Room Air Room Air 11/27/19 11/27/19 11/27/19 11/27/19 07:00 07:00 08:00 09:00 Pulse 104 99 101 105 Resp 20 17 B/P (MAP) 108/92 (97) 108/89 (95) O2 Delivery Room Air Room Air Room Air 11/27/19 10:00 Pulse 104 Resp 23 B/P (MAP) 114/83 (93) Pulse Ox 96 O2 Delivery Room Air 11/27/19 00:00 Intake Total 860 ml Output Total 1905 ml Balance -1045 ml Constitutional: AAO x 3, well-developed, well-nourished Respiratory: No accessory muscle use; other (good bilat air entry) Cardiovascular: irregularly irregular, S1 and S2, systolic murmur (soft KARI at card base) Gastrointestional: No tender; soft; No guarding, No rebound; audible bowel sounds Extremities: No clubbing, No cyanosis, No significant edema Neurologic/Psychiatric: oriented x 3, other (moves all limbs equally) Skin: No rash on exposed areas, No ulcerations on exposed areas Results/Procedures: Labs Laboratory Tests 11/27/19 02:54: White Blood Count 6.8, Red Blood Count 5.24, Hemoglobin 15.5, Hematocrit 48, Mean Corpuscular Volume 91, Mean Corpuscular Hemoglobin 30, Mean Corpuscular Hemoglobin Concent 33, Red Cell Distribution Width 14.5, Platelet Count 136, Mean Platelet Volume 11.2H, Neutrophils (%) (Auto) 73, Lymphocytes (%) (Auto) 17, Monocytes (%) (Auto) 9, Eosinophils (%) (Auto) 2, Basophils (%) (Auto) 0, Neutrophils # (Auto) 5.0, Lymphocytes # (Auto) 1.1, Monocytes # (Auto) 0.6, Eosinophils # (Auto) 0.1, Basophils # (Auto) 0.0, Sodium Level 134L, Potassium Level 3.9, Chloride Level 102, Carbon Dioxide Level 20L, Anion Gap 12, Blood U nicole Nitrogen 26H, Creatinine 1.06, Estimat Glomerular Filtration Rate > 60, BUN/Creatinine Ratio 25, Glucose Level 120H, Calcium Level 8.0L, Phosphorus Level 2.9, Magnesium Level 2.0 Microbiology 11/22/19 MRSA Screen - Final, Complete MRSA not isolated Laboratory Tests 11/26/19 03:05 11/27/19 02:54 A/P: Assessment: Cardiogenic shock due to severe, nonischemic cm. Shock now resolved A Fib with RVR, resistant to elec CV on 11/25/19 and repeat elec CV on 11/27/19 after loading with amiodarone Ac systolic CHF: ejection fraction 10 percent Cardiac catheterization of 11/22/19 showed only mild CAD Elevated liver enzymes, alcohol-related or passive hepatic congestion Tobaccoism Alcoholism Plan: * I interviewed and examined him and reviewed his records. I explained the procedure, risks, benefits, potential complications and alternatives of elec CV to him prior to the procedure today * Repeated failure of cardioversion, electrical and chemical (see above). Plan now is rate control * Continue current regimen of bb and Entresto for heart failure * Continue current regimen of bb and amiodarone for rate control and cm * Continue apixaban for stroke prophylaxis * Advised to refrain from alcohol and tobacco use * Ext defib vest placed today and pros and cons reviewed and questions answered * Add dig for rate control and for control of CHF * Keep in hosp today * Monitor labs PRATIK CRENSHAW MD FACP FAC CCDS Nov 27, 2019 11:07
[2019-11-27] MEDS ORDERED: DIGOXIN 0.25 MG/ML (LANOXIN) 2 ML AMP IV ONE (11:30)
[2019-11-27] MEDS: AMIODARONE 200 MG (CORDARONE) TAB PO SCH ×2 (11:51→20:34)
[2019-11-27] MEDS: SACUBITRIL/VALSARTAN 24/26 MG (ENTRESTO) TABLET PO SCH ×2 (11:51→20:34)
[2019-11-27] MEDS: PANTOPRAZOLE 40 MG (PROTONIX) VIAL IV SCH (11:51)
[2019-11-27] MEDS: meTOprolol TARTRATE 25 MG (LOPRESSOR) TABLET PO SCH ×2 (11:52→20:34)
[2019-11-27] MEDS: APIXABAN 5 MG (ELIQUIS) TABLET PO SCH ×2 (11:52→20:34)
--- NOTE | 2019-11-27 12:34 | Progress Note - Hospitalist ---
Subjective HPI/CC On Admission Date Seen by Provider: Nov 27, 2019 Time Seen by Provider: 12:30 Patient denies shortness of breath or chest pain. Repeat cardioversion on amiodarone was not successful today. Patient is had no lightheadedness. He denied PND he's been sleeping with the head of his bed elevated all me because of concerns that he would become short of breath if supine as had been the case for the past several days before his admission. Subjective/Events-last exam See above which was todays encounter. Objective Exam Vital Signs Vital Signs Date Time Temp Pulse Resp B/P (MAP) Pulse Ox O2 Delivery O2 Flow Rate FiO2 11/27/19 12:00 36.2 11/27/19 12:00 96 21 102/80 (87) 90 Room Air 11/24/19 23:00 3.00 Capillary Refill : Less Than 3 Seconds General Appearance: No Apparent Distress, Anxious Respiratory: Chest Non Tender, Lungs Clear, Normal Breath Sounds, No Accessory Muscle Use, No Respiratory Distress Cardiovascular: No Gallop, No Murmur, Irregularly Irregular, Other (1-2+ edema to the mid tibia bilaterally no erythema no tenderness extremities are warm) Results/Procedures Lab Laboratory Tests 11/27/19 02:54 Patient resulted labs reviewed. Assessment/Plan Assessment and Plan Assess & Plan/Chief Complaint Cardiogenic shock due to severe, nonischemic cm. Shock now resolved. Alcohol related cardiomyopathy likely. A Fib with RVR, resistant to elec CV on 11/25/19 and repeat elec CV on 11/27/19 after loading with amiodarone Ac systolic CHF: ejection fraction 10 percent Cardiac catheterization of 11/22/19 showed only mild CAD Elevated liver enzymes, alcohol-related or passive hepatic congestion Tobaccoism Alcoholism Plan: * Repeated failure of cardioversion, electrical and chemical (see above). Plan now is rate control * Continue current regimen of bb and Entresto for heart failure * Continue current regimen of bb and amiodarone for rate control and cm * Continue apixaban for stroke prophylaxis * Advised to refrain from alcohol and tobacco use * Ext defib vest placed today and pros and cons reviewed and questions answered * Add dig for rate control and for control of CHF * Keep in hosp today * Monitor labs Critical Care Critically Ill Patient Clinical Quality Measures DVT/VTE Risk/Contraindication: Risk Factor Score Per Nursin RFS Level Per Nursing on Admit: 3=High MELGAR,JOCELYN D MD Nov 27, 2019 12:34
--- NOTE | 2019-11-27 13:26 | OPERATIVE REPORT ---
DATE OF SERVICE: PROCEDURE: External electrical cardioversion. PREOPERATIVE DIAGNOSIS: Atrial fibrillation. POSTOPERATIVE DIAGNOSIS: Transient sinus rhythm converting back to atrial fibrillation. INDICATIONS: The patient is a 54-year-old man with nonischemic cardiomyopathy and atrial fibrillation with a rapid ventricular response. He was treated with external electrical cardioversion a couple of days ago, but reverted back to atrial fibrillation. He was then treated with amiodarone and repeat electrical cardioversion was carried out today after having obtained an informed consent. DESCRIPTION OF PROCEDURE: Short-acting anesthesia was provided by the nurse command and control officer. External electrical cardioversion was carried out with a synchronized biphasic shock at 120 joules per joules. This converted him to sinus rhythm for less than a minute and he went right back into atrial fibrillation. The procedure was again repeated. He again converted into sinus rhythm for a short while and went back into atrial fibrillation. Job ID: [id number] DocumentID: [id number] Dictated Date: 11/27/2019 11:30:27 Delinquent Tax Collector Assistant Date: 11/27/2019 13:26:06 Dictated By: PRATIK CRENSHAW MD, MA, FACP, FACC,
[2019-11-28 03:20] LABS: BASOPHILS % (AUTO) 1 % (0-10); EOSINOPHILS # (AUTO) 0.1 10^3/uL (0.0-0.3); EOSINOPHILS % (AUTO) 2 % (0-10); HEMATOCRIT 47 % (40-54); HEMOGLOBIN 15.3 G/DL (13.3-17.7); LYMPHOCYTES # (AUTO) 1.4 X 10^3 (1.0-4.0); LYMPHOCYTES % (AUTO) 23 % (12-44); MEAN CORPUSCULAR HEMOGLOBIN 30 PG (25-34); MEAN CORPUSCULAR HGB CONC 33 G/DL (32-36); MEAN CORPUSCULAR VOLUME 92 FL (80-99); MEAN PLATELET VOLUME 11.8 FL (7.4-10.4); MONOCYTES # (AUTO) 0.5 X 10^3 (0.0-1.0); MONOCYTES % (AUTO) 8 % (0-12); NEUTROPHILS % (AUTO) 66 % (42-75); PLATELET COUNT 131 10^3/uL (130-400); RED CELL DISTRIBUTION WIDTH 14.6 % (10.0-14.5); WHITE BLOOD COUNT 6.1 10^3/uL (4.3-11.0)
[2019-11-28 03:38] LABS: BUN/CREATININE RATIO 21; CALCIUM 7.7 MG/DL (8.5-10.1); CARBON DIOXIDE 20 MMOL/L (21-32); CHLORIDE 103 MMOL/L (98-107); CREATININE SERUM 1.03 MG/DL (0.60-1.30); GFR ESTIMATED > 60; GLUCOSE 98 MG/DL (70-105); MAGNESIUM 1.9 MG/DL (1.6-2.4); PHOSPHORUS 3.3 MG/DL (2.3-4.7); POTASSIUM 4.2 MMOL/L (3.6-5.0); SODIUM 134 MMOL/L (135-145)
[2019-11-28 03:45] VITALS: BP 98/65
[2019-11-28 08:00] VITALS: BP 123/93
[2019-11-28] MEDS: AMIODARONE 200 MG (CORDARONE) TAB PO SCH (08:17)
[2019-11-28] MEDS: SACUBITRIL/VALSARTAN 24/26 MG (ENTRESTO) TABLET PO SCH (08:17)
[2019-11-28] MEDS: PANTOPRAZOLE 40 MG (PROTONIX) VIAL IV SCH (08:17)
[2019-11-28] MEDS: APIXABAN 5 MG (ELIQUIS) TABLET PO SCH (08:17)
[2019-11-28] MEDS: meTOprolol TARTRATE 25 MG (LOPRESSOR) TABLET PO SCH (08:17)
[2019-11-28] MEDS ORDERED: DIGOXIN 0.25 MG (LANOXIN) TAB PO SCH (09:00)
--- NOTE | 2019-11-28 09:46 | Progress Note - Cardiology ---
Cardiology SOAP Progress Note Subjective: Feels well No cp or palp or syncope No shortness of breath at rest No focal weakness No n/v/d Wishes to go home Objective: I&O/Vital Signs 11/27/19 11/28/19 11/28/19 11/28/19 23:55 01:00 03:45 07:00 Temp 36.0 36.4 Pulse 90 82 89 106 Resp 18 18 B/P (MAP) 108/88 (95) 98/65 (76) Pulse Ox 93 95 O2 Delivery Nasal Cannula Nasal Cannula O2 Flow Rate 2.00 2.00 11/28/19 11/28/19 08:00 08:00 Temp 36.4 Pulse 90 Resp 17 B/P (MAP) 123/93 (103) Pulse Ox 95 95 O2 Delivery Room Air Room Air 11/28/19 00:00 Intake Total 1690 ml Output Total 1150 ml Balance 540 ml Constitutional: AAO x 3, well-developed, well-nourished Respiratory: No accessory muscle use; other (good bilat air entry) Cardiovascular: irregularly irregular, S1 and S2, systolic murmur (soft KARI at card base) Gastrointestional: No tender; soft; No guarding, No rebound; audible bowel sounds Extremities: No clubbing, No cyanosis, No significant edema Neurologic/Psychiatric: oriented x 3, other (moves all limbs equally) Skin: No rash on exposed areas, No ulcerations on exposed areas Results/Procedures: Labs Laboratory Tests 11/28/19 03:05: White Blood Count 6.1, Red Blood Count 5.11, Hemoglobin 15.3, Hematocrit 47, Mean Corpuscular Volume 92, Mean Corpuscular Hemoglobin 30, Mean Corpuscular Hemoglobin Concent 33, Red Cell Distribution Width 14.6H, Platelet Count 131, Mean Platelet Volume 11.8H, Neutrophils (%) (Auto) 66, Lymphocytes (%) (Auto) 23, Monocytes (%) (Auto) 8, Eosinophils (%) (Auto) 2, Basophils (%) (Auto) 1, Neutrophils # (Auto) 4.0, Lymphocytes # (Auto) 1.4, Monocytes # (Auto) 0.5, Eosinophils # (Auto) 0.1, Basophils # (Auto) 0.0, Sodium Level 134L, Potassium Level 4.2, Chloride Level 103, Carbon Dioxide Level 20L, Anion Gap 11, Blood Urea Nitrogen 22H, Creatinine 1.03, Estimat Glomerular Filtration Rate > 60, BUN/Creatinine Ratio 21, Glucose Level 98, Calcium Level 7.7L, Phosphorus Level 3.3, Magnesium Level 1.9, Digoxin Level < 0.30L Microbiology 11/22/19 MRSA Screen - Final, Complete MRSA not isolated Laboratory Tests 11/27/19 02:54 11/28/19 03:05 A/P: Assessment: Cardiogenic shock due to severe, nonischemic cm. Shock now resolved A Fib with RVR, resistant to elec CV on 11/25/19 and repeat elec CV on 11/27/19 after loading with amiodarone Ac systolic CHF: ejection fraction [address]. Life [address]est in place Cardiac catheterization of 11/22/19 showed only mild CAD Elevated liver enzymes, alcohol-related or passive hepatic congestion Tobaccoism Alcoholism Plan: * Ok to d/c if continues to feel well post ambulation * Continue current regimen of bb and Entresto for heart failure * Continue current regimen of bb and dig and amiodarone for rate control and cm * Continue apixaban for stroke prophylaxis * Advised to refrain from alcohol and tobacco use * Keep Life Ves * F/u with Dr Corado as outpatient * Return to ER for recurrent symptoms or any new symptoms PRATIK CRENSHAW MD FACP FAC CCDS Nov 28, 2019 09:46
--- NOTE | 2019-11-28 11:04 | Discharge Summary ---
Diagnosis/Chief Complaint Date of Admission Nov 22, 2019 at 16:40 Date of Discharge Discharge Date: Nov 28, 2019 Primary Care Santy Birmingham MD Discharge Summary Discharge Physical Exam Allergies: Coded Allergies: No Known Drug Allergies (Unverified , 11/19/19) Vitals & I&Os Vital Signs Date Time Temp Pulse Resp B/P (MAP) Pulse Ox O2 Delivery O2 Flow Rate FiO2 11/28/19 08:00 95 Room Air 11/28/19 08:00 36.4 90 17 123/93 (103) 11/28/19 03:45 2.00 General Appearance: No Apparent Distress Respiratory: Chest Non Tender, Lungs Clear, Normal Breath Sounds, No Accessory Muscle Use, No Respiratory Distress Cardiovascular: No Gallop, No Murmur, Irregularly Irregular Extremity: Other (Trace pedal edema) Hospital Course Was the Problem List Reviewed?: Yes The patient is a 54-year-old white male who presented emergency room with or thopnea PND and shortness of breath of at least several days duration. He was noted to be in atrial fibrillation with rapid ventricular response. IV Cardizem was initiated and he also had evidence for significant congestive heart failure with a BNP level of over 12,000 and evidence for pulmonary edema on his chest x- ray. Echo revealed global hypokinesis with an estimated ejection fraction around 10 percent. Apparently he did require short-term balloon pump to aid in hemodynamic stabilization. Social cardiac catheterization revealed no significant epicardial coronary artery disease. Patient underwent cardioversion which was not successful. He was loaded with amiodarone IV and repeat cardioversion 2 revealed temporary returned to normal sinus rhythm on both attempts with quick reversion to atrial fibrillation. Congestive heart failure symptoms resolved and the patient was ambulating in the room making transfers independently without any significant shortness of breath. Entresto and digoxin were initiated in addition to diuretic therapy. Amiodarone is being continued and I believe he is being decreased to 400 mg by mouth on discharge. He will have a follow-up appointment with Dr. Hernandez this coming week he believes he has another appointment with his primary care provider Dr. Birmingham in the next month this may be best done over the phone pending coronavirus issues. Labs (last 24 hrs) Laboratory Tests 11/28/19 03:05: White Blood Count 6.1, Red Blood Count 5.11, Hemoglobin 15.3, Hematocrit 47, Mean Corpuscular Volume 92, Mean Corpuscular Hemoglobin 30, Mean Corpuscular Hemoglobin Concent 33, Red Cell Distribution Width 14.6H, Platelet Count 131, Mean Platelet Volume 11.8H, Neutrophils (%) (Auto) 66, Lymphocytes (%) (Auto) 23, Monocytes (%) (Auto) 8, Eosinophils (%) (Auto) 2, Basophils (%) (Auto) 1, Neutrophils # (Auto) 4.0, Lymphocytes # (Auto) 1.4, Monocytes # (Auto) 0.5, Eosinophils # (Auto) 0.1, Basophils # (Auto) 0.0, Sodium Level 134L, Potassium Level 4.2, Chloride Level 103, Carbon Dioxide Level 20L, Anion Gap 11, Blood Urea Nitrogen 22H, Creatinine 1.03, Estimat Glomerular Filtration Rate > 60, BUN/Creatinine Ratio 21, Glucose Level 98, Calcium Level 7.7L, Phosphorus Level 3.3, Magnesium Level 1.9, Digoxin Level < 0.30L Microbiology 11/22/19 MRSA Screen - Final, Complete MRSA not isolated Patient resulted labs reviewed. Pending Labs Laboratory Tests 11/28/19 03:05: White Blood Count 6.1, Red Blood Count 5.11, Hemoglobin 15.3, Hematocrit 47, Mean Corpuscular Volume 92, Mean Corpuscular Hemoglobin 30, Mean Corpuscular Hemoglobin Concent 33, Red Cell Distribution Width 14.6, Platelet Count 131, Mean Platelet Volume 11.8, Neutrophils (%) (Auto) 66, Lymphocytes (%) (Auto) 23, Monocytes (%) (Auto) 8, Eosinophils (%) (Auto) 2, Basophils (%) (Auto) 1, Neutrophils # (Auto) 4.0, Lymphocytes # (Auto) 1.4, Monocytes # (Auto) 0.5, Eosinophils # (Auto) 0.1, Basophils # (Auto) 0.0, Sodium Level 134, Potassium Level 4.2, Chloride Level 103, Carbon Dioxide Level 20, Anion Gap 11, Blood Urea Nitrogen 22, Creatinine 1.03, Estimat Glomerular Filtration Rate > 60, BUN/Creatinine Ratio 21, Glucose Level 98, Calcium Level 7.7, Phosphorus Level 3.3, Magnesium Level 1.9, Digoxin Level < 0.30 Discussion & Recommendations Discharge Planning: >30 minutes discharge planning Discharge Home Medications: Active Scripts Active Reported Vitamin A 8,000 Unit Capsule 8,000 Unit PO DAILY Vitamin B-12 (Cyanocobalamin) 100 Mcg Tablet 100 Mcg PO DAILY Vitamin D3 (Cholecalciferol (Vitamin D3)) 25 Mcg Capsule 25 Mcg PO DAILY Miralax (Polyethylene Glycol 3350) 17 Gm Powd.pack 17 Gm PO DAILY PRN Instructions to patient/family Please see electronic discharge instructions given to patient. Clinical Quality Measures DVT/VTE Risk/Contraindication: Risk Factor Score Per Nursin RFS Level Per Nursing on Admit: 3=High Copy Copies To 1: SANTY BIRMINGHAM MD Copies To 2: INDERJIT HAWK MD, MARK D MD Nov 28, 2019 11:04
[2019-11-28] MEDS ORDERED: APIX5TAB PO (11:05)
[2019-11-28] MEDS ORDERED: AMIO200T4 PO (11:05)
[2019-11-28] MEDS ORDERED: DIGO250T15 PO (11:05)
[2019-11-28] MEDS ORDERED: SACU1TAB2 PO (11:05)
[2019-11-28] MEDS ORDERED: METO-333 PO (11:05)
[2019-11-28 12:00] VITALS: BP 110/97
--- NOTE | 2019-11-28 18:18 | Anesthesia-General Post-Op ---
MAC Patient Condition Mental Status/LOC: Same as Preop Cardiovascular: Satisfactory Nausea/Vomiting: Absent Respiratory: Satisfactory Pain: Controlled Complications: Absent Post Op Complications Complications None Follow Up Care/Instructions Patient Instructions None needed. Anesthesiology Discharge Order Discharge Order Patient is doing well, no complaints, stable vital signs, no apparent adverse anesthesia problems. No complications reported per nursing. CHUCHO TUCKER CRNA Nov 28, 2019 18:18
[2019-11-29] MEDS ORDERED: AMIODARONE 200 MG (CORDARONE) TAB PO SCH (09:00)
== END 2019-11-28 12:48 | disposition home or self-care (01) | DRG 270 ==
LOC: EDUNIT# 13:46 → ER 13:48 → ICU 14:10 → OBSVTOIN 16:40 → ICU 11-23 18:19
PROVIDERS: ADMIT Family Medicine; ATTEND Family Medicine
PROC: 5A02210 Assistance with Cardiac Output using Balloon Pump, Continuous (ICD-10-PCS; principal; 2019-11-22)
PROC: 4A023N7 Measurement of Cardiac Sampling and Pressure, Left Heart, Percutaneous Approach (ICD-10-PCS; 2019-11-22)
PROC: B2111ZZ Fluoroscopy of Multiple Coronary Arteries using Low Osmolar Contrast (ICD-10-PCS; 2019-11-22)
PROC: B2151ZZ Fluoroscopy of Left Heart using Low Osmolar Contrast (ICD-10-PCS; 2019-11-22)
PROC: 5A2204Z Restoration of Cardiac Rhythm, Single (ICD-10-PCS; 2019-11-23)
DX: I48.0 Paroxysmal atrial fibrillation (principal); R57.8 Other shock; I11.0 Hypertensive heart disease with heart failure; I50.21 Acute systolic (congestive) heart failure; N17.9 Acute kidney failure, unspecified; I42.6 Alcoholic cardiomyopathy; I25.10 Atherosclerotic heart disease of native coronary artery without angina pectoris; I95.9 Hypotension, unspecified; K76.1 Chronic passive congestion of liver; F10.20 Alcohol dependence, uncomplicated; F17.210 Nicotine dependence, cigarettes, uncomplicated; E87.6 Hypokalemia
CPT/HCPCS: 33967; 36415; 71045; 80048; 80053; 80162; 81000; 82962; 83735; 83880; 84100; 84484; 85007; 85025; 85027; 85610; 85730; 86666; 86668; 86757; 87081; 93005; 93312; 93320; 93325; 93458; 96372; 96374

== ENCOUNTER → 2019-11-22 | Outpatient (CLI) | payer SELFPAY ==
[~2019-11-22] MED LIST changes: -CATHETER FLUSH 10 ML SYR IV PRN; +HEParin (CATH LAB) 1,000 ML IV ONE; +HEParin DRIP 25000 UNIT/500ML 500 ML IV ONE; -HOLD METFORMIN - RECEIVED CONTRAST 20 ML VIAL IV SCH; -IOHEXOL 350 MG/ML 100 ML (OMNIPAQUE 350) VIAL IV ONE; +LIDOCAINE 1% INJ 20 ML 20 ML VIAL ONE; +MIDAZOLAM 5 MG/5 ML (VERSED) VIAL ONE; -NS 100 ML (IVPB) BAG IV ONE; +NS IV 1000 ML 1,000 ML ONE; +fentaNYL INJECTION 100 MCG/2 ML AMP ONE
== END ==
LOC: CARD 13:04 → EDUNIT# 14:00
PROVIDERS: ATTEND Family Medicine
DX: I08.1 Rheumatic disorders of both mitral and tricuspid valves (principal)

== ENCOUNTER → 2020-01-13 | Outpatient (CLI) | payer SELFPAY ==
[~2020-01-13] MED LIST changes: +AMIO200T4 PO; +APIX5TAB PO; +DIGO250T15 PO; -HEParin (CATH LAB) 1,000 ML IV ONE; -HEParin DRIP 25000 UNIT/500ML 500 ML IV ONE; -LIDOCAINE 1% INJ 20 ML 20 ML VIAL ONE; +METO-333 PO; -MIDAZOLAM 5 MG/5 ML (VERSED) VIAL ONE; -NS IV 1000 ML 1,000 ML ONE; +SACU1TAB2 PO; -fentaNYL INJECTION 100 MCG/2 ML AMP ONE
== END ==
LOC: CARD 09:27
PROVIDERS: ATTEND Physician Assistant
DX: I48.91 Unspecified atrial fibrillation (principal); I42.9 Cardiomyopathy, unspecified; I08.1 Rheumatic disorders of both mitral and tricuspid valves
CPT/HCPCS: 93306

== ENCOUNTER → 2020-08-17 | Outpatient (CLI) | payer OTHER ==
[~2020-08-17] MED LIST changes: -AMIO200T4 PO; +AMIO200T6 PO; -CYAN100T3 PO; +CYAN100T37 PO
== END ==
LOC: CARD 08:30
PROVIDERS: ATTEND Physician Assistant
DX: I50.9 Heart failure, unspecified (principal); I51.7 Cardiomegaly; I34.0 Nonrheumatic mitral (valve) insufficiency
CPT/HCPCS: 93306

== ENCOUNTER → 2021-08-27 | Outpatient (CLI) | payer SELFPAY ==
[~2021-08-27] MED LIST changes: -AMIO200T6 PO; +AMIO200T65 PO
== END ==
LOC: CARD 12:00
PROVIDERS: ATTEND Internal Medicine Cardiovascular Disease
DX: I11.9 Hypertensive heart disease without heart failure (principal)
CPT/HCPCS: 93306